=== PATIENT | male | born 1960 | race Caucasian/White ===

== ENCOUNTER → 2018-05-30 07:48 | Outpatient (CLI) | payer MEDICARE, SELFPAY ==
[2018-05-30 08:35] LABS: Add Manual Diff / Slide Review NO; Basophils Percent Auto 0.7 % (0-2); Eosinophils Percent Auto 4.4 % (2-4); Hematocrit 44.6 % (41-53); Hemoglobin 16.1 g/dL (13.5-17.5); Mean Corpuscular Hemoglobin 32.5 PG (26-34); Mean Corpuscular Volume 90.1 fL (80-100); Monocytes Percent Auto 10.2 % (3-14); Neutrophils Absolute Auto 3500 /uL (3000-5900); Neutrophils Percent Auto 54.7 % (50-75); Platelet Count 237 X10^3/uL (150-400); Red Blood Cell Count 4.95 X10^6/uL (4.5-5.9); Red Cell Distribution Width 13.1 % (11.6-14.8); White Blood Cell Count 6.4 X10^3/uL (4.5-11.0)
[2018-05-30 09:06] LABS: Alanine Aminotransferase 47 IU/L (21-72); Albumin 4.5 g/dL (3.5-5.0); Albumin Globulin Ratio 1.8 (1.0-2.8); Alkaline Phosphatase 59 U/L (38-126); Aspartate Aminotransferase 45 IU/L (17-59); BUN Creatinine Ratio 16.4 (6-22); Bilirubin Total 0.5 mg/dL (0.2-1.3); Blood Urea Nitrogen 18 mg/dL (9-20); Calcium 9.7 mg/dL (8.4-10.2); Carbon Dioxide 30 mmol/L (22-32); Chloride 99 mmol/L (98-107); Cholesterol 180 mg/dL (140-199); Estimated Glomerular Filt Rate > 60.0 mL/min (>60); Globulin 2.5 g/dL (1.7-4.1); Glucose 106 mg/dL (70-100); HDL Cholesterol 23 mg/dL (40-60); HEMOLYSIS 18 (0-50); Potassium 4.2 mmol/L (3.4-5.1); Sodium 139 mmol/L (137-145)
[2018-05-30 09:09] LABS: Hemoglobin A1C% w Est Avg Glu 5.3 % (4.0-6.0)
[2018-05-30 09:20] LABS: Triglycerides 704 mg/dL (35-150)
== END ==
PROVIDERS: PCP Internal Medicine; Visit Provider Physician Assistant
DX: I10 Essential (primary) hypertension (principal); E78.2 Mixed hyperlipidemia; E29.1 Testicular hypofunction; N52.1 Erectile dysfunction due to diseases classified elsewhere
CPT/HCPCS: 36415; 80053; 80061; 83036; 84403; 85025

== ENCOUNTER 2018-06-06 15:15 | Outpatient (RCR) | payer MEDICARE, SELFPAY ==
--- NOTE | 2018-02-12 16:43 | PT.OTN ---
Current Diagnoses Spinal stenosis, lumbar region without neurogenic claudication (02/12/18) Lumbago with sciatica, right side (02/12/18) Other abnormalities of gait and mobility (02/12/18) Transition note: On February 06, 2018 our therapy services consisting of Speech, Occupational, and Physical Therapy transitioned from the [employer] electronic documentation system to a new [employer] electronic documentation system.?? All documentation prior to February 06 can be found under [employer] saved data. From February 06 forward all medical record documentation will be in [employer] 6.1.
--- NOTE | 2018-02-12 16:57 | PT.OTN ---
Current Diagnoses Spinal stenosis, lumbar region without neurogenic claudication (02/12/18) Lumbago with sciatica, right side (02/12/18) Other abnormalities of gait and mobility (02/12/18) Physical Therapy Treatment Note PT-OP-A Visit Information Start: 02/12/18 16:29 Freq: Status: Active Protocol: Activity Type Activity Date Activity User E-Sign Co-Sign Detail Recorded Client Recorded Date Recorded By Document 02/12/18 16:31 [facility] [email or web address] 02/12/18 16:53 [facility] 02/12/18 16:31 Out-Patient Physical Therapy Visit Information [Visit Information] -Visit Type Treatment Note -Visit Start Time 11:45 -Visit Stop Time 12:30 -Total Visit Minutes 45 -Visit Number 4/10 -Number of RAILS DEVELOPER Visits 1 PT-OP-C Subjective Start: 02/12/18 16:29 Freq: Status: Active Protocol: Activity Type Activity Date Activity User E-Sign Co-Sign Detail Recorded Client Recorded Date Recorded By Document 02/12/18 16:31 [facility] [email or web address] 02/12/18 16:53 [facility] 02/12/18 16:31 OP-PT Subjective [Patient Comments] -Patient Comments Pt. states he's had a bad couple days, rates pain at 6 /10. PT-OP-S Aquatic Treatment Start: 02/12/18 16:29 Freq: Status: Active Protocol: Activity Type Activity Date Activity User E-Sign Co-Sign Detail Recorded Client Recorded Date Recorded By Document 02/12/18 16:31 [facility] [email or web address] 02/12/18 16:53 [facility] 02/12/18 16:31 Aquatics Treatment [Water Walking] Sideways -Comments Initiated side stepping, stopped secondary pain going to right. Backwards -Water Level Chest Level -Level of Assistance Independent Forwards -Water Level Chest Level -Level of Assistance Independent [Lower Extremity Exercises] 2 -Details Hip Abduction -Body Position Standing 1 -Details Hip flexion/ extension -Body Position Standing -Water Level Chest Level [Lower Extremity Stretches] 2 -Details Single knee to chest -Water Level Waist Level 1 -Details Hamstring -Body Position Standing -Water Level Waist Level -Equipment Small Noodle [Upper Extremity Exercises] 1 -Details Shoulder Flexion/ extension, AB/ AD, horizontal AB/AD -Body Position Standing -Reps/Duration 5 reps -Comments Bilateral and unilateral/ core stabilization emphasis [Manual Techniques] -Aquatic Manual Traction Neck float/ calf floats PT-OP-T Assessment and Plan Start: 02/12/18 16:29 Freq: Status: Active Protocol: Activity Type Activity Date Activity User E-Sign Co-Sign Detail Recorded Client Recorded Date Recorded By Document 02/12/18 16:31 [facility] [email or web address] 02/12/18 16:53 [facility] 02/12/18 16:31 Physical Therapy Assessment [Assessment Summary] -Assessment Pt. didn't tolerate side stepping to right so omitted it, gets relief with Manual Therapy. Cues to keep ROM within tolerance with exercises. Physical Therapy Plan [Frequency and Duration] -Frequency of Treatment 2x/Week -Duration of Treatment 3 months from -Plan of Care Start Date 01/24/18 -Plan of Care End Date 04/24/18 [Next Visit Focus/Plan] -Next Visit Plan Continue to decrease pain, increase function and ROM, strength.
--- NOTE | 2018-02-16 16:18 | PT.OTN ---
Current Diagnoses Spinal stenosis, lumbar region without neurogenic claudication (02/16/18) Lumbago with sciatica, right side (02/16/18) Other abnormalities of gait and mobility (02/16/18) Physical Therapy Treatment Note PT-OP-A Visit Information Start: 02/12/18 16:29 Freq: Status: Active Protocol: Document 02/16/18 15:05 SAK (Rec: 02/16/18 15:10 SAK [id number]) Out-Patient Physical Therapy Visit Information Visit Information Visit Type Treatment Note Visit Start Time 09:00 Visit Stop Time 09:55 Total Visit Minutes 6 Visit Number 0 Number of MANAGER WASTEWATER Visits 0 PT-OP-C Subjective Start: 02/12/18 16:29 Freq: Status: Active Protocol: Document 02/16/18 15:05 SAK (Rec: 02/16/18 15:10 SAK [id number]) OP-PT Subjective Patient Comments Patient Comments Overall feels he is improving but still has times when pain is 6/10 PT-OP-Q Treatments Start: 02/16/18 15:10 Freq: Status: Active Protocol: Document 02/16/18 15:10 SAK (Rec: 02/16/18 16:13 SAK [id number]) Therapeutic Exercises Supine Exercises 4 Supine Exercise Name iliopsoas stretch Side bilateral 3 Supine Exercise Name hamstring stretch Reps/Minutes 2 2 Supine Exercise Name piriformis stretch Side bilateral Reps/Minutes 2 1 Supine Exercise Name SKTC Side bilateral Reps/Minutes 2 PT-OP-R Modalities Start: 02/16/18 16:14 Freq: Status: Active Protocol: Document 02/16/18 16:14 SAK (Rec: 02/16/18 16:18 SAK [id number]) Hot Pack/Cold Pack Treatment Cold Pack Location l/s Patient Position Hooklying Treatment Duration (minutes) 10 Patient Tolerance Good Comments after mechanical traction Spinal Traction Traction Treatment Lumbar Method Mechanical Patient Position Hooklying Duration of Treatment (Minutes) 15 Heating Pad Applied Yes Traction Treatment Comment 30:10 intermittent 84lbs/65 lbs PT-OP-S Aquatic Treatment Start: 02/12/18 16:29 Freq: Status: Active Protocol: Document 02/12/18 16:31 TMS (Rec: 02/12/18 16:53 TMS [email or web address]) Aquatics Treatment Water Walking Sideways Comments Initiated side stepping, stopped secondary pain going to right. Backwards Water Level Chest Level Level of Assistance Independent Forwards Water Level Chest Level Level of Assistance Independent Lower Extremity Exercises 2 Details Hip Abduction Body Position Standing 1 Details Hip flexion/extension Body Position Standing Water Level Chest Level Lower Extremity Stretches 2 Details Single knee to chest Water Level Waist Level 1 Details Hamstring Body Position Standing Water Level Waist Level Equipment Small Noodle Upper Extremity Exercises 1 Details Shoulder Flexion/extension, AB /AD, horizontal AB/AD Body Position Standing Reps/Duration 5 reps Comments Bilateral and unilateral/ core stabilization emphasis Manual Techniques Aquatic Manual Traction Neck float/ calf floats PT-OP-T Assessment and Plan Start: 02/12/18 16:29 Freq: Status: Active Protocol: Document 02/12/18 16:31 TMS (Rec: 02/12/18 16:53 TMS [email or web address]) Physical Therapy Assessment Assessment Summary Assessment Pt. didn't tolerate side stepping ro right so omitted it, gets relief with Manual Therapy. Cues to keep ROM within tolerance with exercises. Physical Therapy Plan Frequency and Duration Frequency of Treatment 2x/Week Duration of Treatment 3 months from 01/24/2018 Plan of Care Start Date 01/24/18 Plan of Care End Date 04/24/18 Next Visit Focus/Plan Next Visit Plan Continue to decrease pain, increase function and ROM, strength.
--- NOTE | 2018-02-22 16:10 | PT.OTN ---
Current Diagnoses Spinal stenosis, lumbar region without neurogenic claudication (02/16/18) Lumbago with sciatica, right side (02/16/18) Other abnormalities of gait and mobility (02/16/18) Physical Therapy Treatment Note PT-OP-A Visit Information Start: 02/12/18 16:29 Freq: Status: Active Protocol: Document 02/22/18 13:15 SAK (Rec: 02/22/18 16:10 SAK [id number]) Out-Patient Physical Therapy Visit Information Visit Information Visit Type Treatment Note Visit Start Time 13:15 Visit Stop Time 14:15 Total Visit Minutes 60 Visit Number 610 Number of CAR WASH SUPERVISOR Visits 0 PT-OP-C Subjective Start: 02/12/18 16:29 Freq: Status: Active Protocol: Document 02/16/18 15:05 SAK (Rec: 02/16/18 15:[address] [facility] [id number]) OP-PT Subjective Patient Comments Patient Comments Overall feels he is improving but still has times when pain is 6/10 PT-OP-Q Treatments Start: 02/16/18 15:10 Freq: Status: Active Protocol: Document 02/22/18 13:15 SAK (Rec: 02/22/18 16:[address] [facility] [id number]) Therapeutic Exercises Supine Exercises 5 Supine Exercise Name pillow squeeze Side bilateral Reps/Minutes 10x 4 Supine Exercise Name iliopsoas stretch Side bilateral Comments manual 3 Supine Exercise Name hamstring stretch Reps/Minutes 2 Comments manual 2 Supine Exercise Name piriformis stretch Side bilateral Reps/Minutes 2 1 Supine Exercise Name SKTC Side bilateral Reps/Minutes 2 Other Exercises 1 Other Exercise Name HC stretch Equipment Used ARASELI Reps/Minutes 2 PT-OP-R Modalities Start: 02/16/18 16:14 Freq: Status: Active Protocol: Document 02/22/18 13:15 SAK (Rec: 02/22/18 16:[address] [facility] [id number]) Hot Pack/Cold Pack Treatment Cold Pack Location l/s Patient Position Hooklying Treatment Duration (minutes) 10 Patient Tolerance Good Comments after mechanical traction Spinal Traction Traction Treatment Lumbar Method Mechanical Patient Position Hooklying Duration of Treatment (Minutes) 15 Heating Pad Applied Yes Traction Treatment Comment 30:10 intermittent 85lbs/65 lbs 5 min set-up Ultrasound Therapy Treatment Right Lower Back Treatment Duration (minutes) 8 Patient Position Prone Frequency Setting (mHz) 2 Intensity Setting (w/cm2) 1.5 Patient Tolerance Good PT-OP-S Aquatic Treatment Start: 02/12/18 16:29 Freq: Status: Active Protocol: Document 02/12/18 16:31 TMS (Rec: 02/12/18 16:53 TMS [email or web address]) Aquatics Treatment Water Walking Sideways Comments Initiated side stepping, stopped secondary pain going to right. Backwards Water Level Chest Level Level of Assistance Independent Forwards Water Level Chest Level Level of Assistance Independent Lower Extremity Exercises 2 Details Hip Abduction Body Position Standing 1 Details Hip flexion/extension Body Position Standing Water Level Chest Level Lower Extremity Stretches 2 Details Single knee to chest Water Level Waist Level 1 Details Hamstring Body Position Standing Water Level Waist Level Equipment Small Noodle Upper Extremity Exercises 1 Details Shoulder Flexion/extension, AB /AD, horizontal AB/AD Body Position Standing Reps/Duration 5 reps Comments Bilateral and unilateral/ core stabilization emphasis Manual Techniques Aquatic Manual Traction Neck float/ calf floats PT-OP-T Assessment and Plan Start: 02/12/18 16:29 Freq: Status: Active Protocol: Document 02/22/18 13:15 SAK (Rec: 02/22/18 16:10 SAK [id number]) Physical Therapy Assessment Other Concerns Barriers to Rehabilitation low frequency of treatment; recommend increase to 2x/wk Assessment Summary Assessment decreased pain with treatment, recommend increase frequency (patient has just been on waiting list) to 2x/wk consistently for best results Physical Therapy Plan Frequency and Duration Frequency of Treatment 2x/Week Duration of Treatment 3 months from 01/24/2018 Plan of Care Start Date 01/24/18 Plan of Care End Date 04/24/18 Next Visit Focus/Plan Next Visit Plan Progress ther ex , continue with modalities. Manual treatment as indicated.
--- NOTE | 2018-02-27 16:21 | PT.OTN ---
Current Diagnoses Spinal stenosis, lumbar region without neurogenic claudication (02/27/18) Lumbago with sciatica, right side (02/27/18) Other abnormalities of gait and mobility (02/27/18) Physical Therapy Treatment Note PT-OP-A Visit Information Start: 02/12/18 16:29 Freq: Status: Active Protocol: Document 02/27/18 14:40 SAK (Rec: 02/27/18 14:57 SAK [id number]) Out-Patient Physical Therapy Visit Information Visit Information Visit Type Treatment Note Visit Start Time 13:15 Visit Stop Time 14:15 Total Visit Minutes 60 Visit Number 7/ Number of LOSS PREVENTION OFFICER Visits 0 PT-OP-C Subjective Start: 02/12/18 16:29 Freq: Status: Active Protocol: Document 02/27/18 14:40 SAK (Rec: 02/27/18 14:57 [facility] [id number]) OP-PT Subjective Patient Comments Patient Comments Better for longer every time. C/o gait difficulty wants PT to look at. PT-OP-Q Treatments Start: 02/16/18 15:10 Freq: Status: Active Protocol: Document 02/27/18 14:40 SAK (Rec: 02/27/18 16:20 [facility] [id number]) Cardio Equipment Recumbent Stepper (Sci-Fit) Duration (Minutes) 10 Resistance 2 Seat Position 13 Therapeutic Exercises Supine Exercises 4 Supine Exercise Name iliopsoas stretch Side bilateral Comments manual 3 Supine Exercise Name hamstring stretch Reps/Minutes 2 Comments manual 2 Supine Exercise Name piriformis stretch Side bilateral Reps/Minutes 2 1 Supine Exercise Name SKTC Side bilateral Reps/Minutes 2 Gait Training Gait Activity 1 Description Gait with verbal and visual feedback Surface level Comments decreased trunk rotation, drops right hip with gait. Improved after stretching but persists, able to correct some with decreased speed. PT-OP-R Modalities Start: 02/16/18 16:14 Freq: Status: Active Protocol: Document 02/27/18 14:40 SAK (Rec: 02/27/18 16:20 [facility] [id number]) Hot Pack/Cold Pack Treatment Cold Pack Location l/s Patient Position Hooklying Treatment Duration (minutes) 10 Patient Tolerance Good Comments after mechanical traction Spinal Traction Traction Treatment Lumbar Method Mechanical Patient Position Hooklying Duration of Treatment (Minutes) 15 Heating Pad Applied Yes Traction Treatment Comment 30:10 intermittent 85lbs/65 lbs 5 min set-up Ultrasound Therapy Treatment Right Lower Back Treatment Duration (minutes) 8 Patient Position Prone Frequency Setting (mHz) 2 Intensity Setting (w/cm2) 1.5 Patient Tolerance Good PT-OP-S Aquatic Treatment Start: 02/12/18 16:29 Freq: Status: Active Protocol: Document 02/12/18 16:31 TMS (Rec: 02/12/18 16:53 TMS [email or web address]) Aquatics Treatment Water Walking Sideways Comments Initiated side stepping, stopped secondary pain going to right. Backwards Water Level Chest Level Level of Assistance Independent Forwards Water Level Chest Level Level of Assistance Independent Lower Extremity Exercises 2 Details Hip Abduction Body Position Standing 1 Details Hip flexion/extension Body Position Standing Water Level Chest Level Lower Extremity Stretches 2 Details Single knee to chest Water Level Waist Level 1 Details Hamstring Body Position Standing Water Level Waist Level Equipment Small Noodle Upper Extremity Exercises 1 Details Shoulder Flexion/extension, AB /AD, horizontal AB/AD Body Position Standing Reps/Duration 5 reps Comments Bilateral and unilateral/ core stabilization emphasis Manual Techniques Aquatic Manual Traction Neck float/ calf floats PT-OP-T Assessment and Plan Start: 02/12/18 16:29 Freq: Status: Active Protocol: Document 02/27/18 14:40 SAK (Rec: 02/27/18 16:20 SAK [id number]) Physical Therapy Assessment Assessment Summary Assessment Good response to treatment especially mechanical traction . Stretching at home somewhat difficult due to tremors in UE's as well as short UE's. Physical Therapy Plan Frequency and Duration Frequency of Treatment 2x/Week Duration of Treatment 3 months from 01/24/2018 Plan of Care Start Date 01/24/18 Plan of Care End Date 04/24/18 Next Visit Focus/Plan Next Visit Plan continue PT per plan to decrease pain, progress with core stabilization, functional retraining including core activation with squatting and lifting. Please Sign and Return: I have reviewed this Plan of Care and certify that the skilled therapy services above are required to meet the patient???s needs. Physician Signature Date Printed Name and Credentials Clinical Instructor Signature Printed Name and Credentials
--- NOTE | 2018-03-01 16:45 | PT.OTN ---
Current Diagnoses Spinal stenosis, lumbar region without neurogenic claudication (03/01/18) Lumbago with sciatica, right side (03/01/18) Other abnormalities of gait and mobility (03/01/18) Physical Therapy Treatment Note PT-OP-A Visit Information Start: 02/12/18 16:29 Freq: Status: Active Protocol: Document 03/01/18 14:35 SAK (Rec: 03/01/18 16:45 SAK [id number]) Out-Patient Physical Therapy Visit Information Visit Information Visit Type Treatment Note Visit Start Time 14:30 Visit Stop Time 15:32 Total Visit Minutes 62 Visit Number 8/ Number of BIOMASS FACILITATOR Visits 0 Evaluation Information Evaluation Date 01/24/18 PT-OP-C Subjective Start: 02/12/18 16:29 Freq: Status: Active Protocol: Document 03/01/18 14:35 SAK (Rec: 03/01/18 15:05 SAK [id number]) OP-PT Subjective Patient Comments Patient Comments C/o neck pain, requests no traction today. PT-OP-Q Treatments Start: 02/16/18 15:10 Freq: Status: Active Protocol: Document 03/01/18 14:35 SAK (Rec: 03/01/18 15:05 SAK [id number]) Cardio Equipment Recumbent Stepper (Sci-Fit) Duration (Minutes) 11 Resistance 2.5 Seat Position 13 Gym Equipment Shuttle Recovery Bilateral Squats Resistance 75 Shuttle Recovery Platform Stable Reps/Time 2 x 10 Shuttle Balance 1 Details standing bal chains red Reps/Duration 4 min Comments fwd/bck, side Therapeutic Exercises Supine Exercises 4 Supine Exercise Name iliopsoas stretch Side bilateral Comments manual 3 Supine Exercise Name hamstring stretch Reps/Minutes 5 Comments wall 2 Supine Exercise Name piriformis stretch Side bilateral Reps/Minutes 2 1 Supine Exercise Name SKTC Side bilateral Reps/Minutes 2 PT-OP-R Modalities Start: 02/16/18 16:14 Freq: Status: Active Protocol: Document 03/01/18 14:35 SAK (Rec: 03/01/18 16:45 SAK [id number]) Hot Pack/Cold Pack Treatment Hot Pack Location l/s Patient Position Prone Treatment Duration (minutes) 15 Patient Tolerance Good Comments Patient reports he will ice at home today. Spinal Traction Traction Treatment Lumbar Traction Treatment Comment refused today due to neck pain Ultrasound Therapy Treatment Right Lower Back Treatment Duration (minutes) 8 Patient Position Prone Frequency Setting (mHz) 2 Intensity Setting (w/cm2) 1.5 Patient Tolerance Good PT-OP-S Aquatic Treatment Start: 02/12/18 16:29 Freq: Status: Active Protocol: Document 02/12/18 16:31 TMS (Rec: 02/12/18 16:53 TMS [email or web address]) Aquatics Treatment Water Walking Sideways Comments Initiated side stepping, stopped secondary pain going to right. Backwards Water Level Chest Level Level of Assistance Independent Forwards Water Level Chest Level Level of Assistance Independent Lower Extremity Exercises 2 Details Hip Abduction Body Position Standing 1 Details Hip flexion/extension Body Position Standing Water Level Chest Level Lower Extremity Stretches 2 Details Single knee to chest Water Level Waist Level 1 Details Hamstring Body Position Standing Water Level Waist Level Equipment Small Noodle Upper Extremity Exercises 1 Details Shoulder Flexion/extension, AB /AD, horizontal AB/AD Body Position Standing Reps/Duration 5 reps Comments Bilateral and unilateral/ core stabilization emphasis Manual Techniques Aquatic Manual Traction Neck float/ calf floats PT-OP-T Assessment and Plan Start: 02/12/18 16:29 Freq: Status: Active Protocol: Document 03/01/18 14:35 SAK (Rec: 03/01/18 16:45 SAK [id number]) Physical Therapy Assessment Assessment Summary Assessment Tolerated added exercises well today with cues for postural alignment and core stabilization. No traction per patient request. No exacerbation of neck pain with treatment. Physical Therapy Plan Frequency and Duration Frequency of Treatment 2x/Week Duration of Treatment 3 months from 01/24/2018 Plan of Care Start Date 01/24/18 Plan of Care End Date 04/24/18 Next Visit Focus/Plan Next Visit Plan resume mechanical traction next session. Progress therapeutic exercises. Please Sign and Return: I have reviewed this Plan of Care and certify that the skilled therapy services above are required to meet the patient???s needs. Physician Signature Date Printed Name and Credentials Clinical Instructor Signature Printed Name and Credentials
--- NOTE | 2018-03-08 17:00 | PT.OTN ---
Current Diagnoses Spinal stenosis, lumbar region without neurogenic claudication (03/08/18) Lumbago with sciatica, right side (03/08/18) Other abnormalities of gait and mobility (03/08/18) Physical Therapy Treatment Note PT-OP-A Visit Information Start: 02/12/18 16:29 Freq: Status: Active Protocol: Document 03/08/18 14:30 SAK (Rec: 03/08/18 17:00 SAK [id number]) Out-Patient Physical Therapy Visit Information Visit Information Visit Type Treatment Note Visit Start Time 14:30 Visit Stop Time 15:38 Total Visit Minutes 68 Visit Number 07/18 Number of FILLER BLOCK INSERTER REMOVER Visits 0 Evaluation Information Evaluation Date 01/24/18 PT-OP-C Subjective Start: 02/12/18 16:29 Freq: Status: Active Protocol: Document 03/08/18 14:30 SAK (Rec: 03/08/18 17:00 SAK [id number]) OP-PT Subjective Patient Comments Patient Comments Neck pain mostly gone, states it was due to couching. Pain 4/10 for past couple days, has resumed doing some walking, reports guarded but improved. PT-OP-Q Treatments Start: 02/16/18 15:10 Freq: Status: Active Protocol: Document 03/08/18 14:30 SAK (Rec: 03/08/18 17:00 SAK [id number]) Cardio Equipment Recumbent Stepper (Sci-Fit) Duration (Minutes) 10 Resistance 2.5 Seat Position 13 Gym Equipment Shuttle Recovery Bilateral Squats Resistance 87 Shuttle Recovery Platform Stable Reps/Time 3 x 10 Shuttle Balance 1 Details standing bal chains red Reps/Duration 4 min Comments fwd/bck, side Therapeutic Exercises Supine Exercises 4 Supine Exercise Name iliopsoas stretch Side bilateral Comments manual 3 Supine Exercise Name hamstring stretch Reps/Minutes 5 Comments standing 1 Supine Exercise Name SKTC Side bilateral Reps/Minutes 2 Other Exercises 1 Other Exercise Name HC stretch Equipment Used ARASELI Reps/Minutes 2 PT-OP-R Modalities Start: 02/16/18 16:14 Freq: Status: Active Protocol: Document 03/08/18 14:30 SAK (Rec: 03/08/18 17:00 SAK [id number]) Hot Pack/Cold Pack Treatment Cold Pack Location l/s Patient Position Hooklying Treatment Duration (minutes) 10 Patient Tolerance Good Comments after mechanical traction Spinal Traction Traction Treatment Lumbar Method Mechanical Patient Position Hooklying Intermittent Time On (Seconds) 30 Intermittent Time Off (Seconds) 10 Duration of Treatment (Minutes) 15 Heating Pad Applied Yes Traction Treatment Comment 30:10 intermittent 85lbs/65 lbs 5 min set-up Ultrasound Therapy Treatment Right Lower Back Treatment Duration (minutes) 8 Patient Position Prone Frequency Setting (mHz) 2 Intensity Setting (w/cm2) 1.5 PT-OP-S Aquatic Treatment Start: 02/12/18 16:29 Freq: Status: Active Protocol: Document 02/12/18 16:31 TMS (Rec: 02/12/18 16:53 TMS [email or web address]) Aquatics Treatment Water Walking Sideways Comments Initiated side stepping, stopped secondary pain going to right. Backwards Water Level Chest Level Level of Assistance Independent Forwards Water Level Chest Level Level of Assistance Independent Lower Extremity Exercises 2 Details Hip Abduction Body Position Standing 1 Details Hip flexion/extension Body Position Standing Water Level Chest Level Lower Extremity Stretches 2 Details Single knee to chest Water Level Waist Level 1 Details Hamstring Body Position Standing Water Level Waist Level Equipment Small Noodle Upper Extremity Exercises 1 Details Shoulder Flexion/extension, AB /AD, horizontal AB/AD Body Position Standing Reps/Duration 5 reps Comments Bilateral and unilateral/ core stabilization emphasis Manual Techniques Aquatic Manual Traction Neck float/ calf floats PT-OP-T Assessment and Plan Start: 02/12/18 16:29 Freq: Status: Active Protocol: Document 03/08/18 14:30 SAK (Rec: 03/08/18 17:00 SAK [id number]) Physical Therapy Assessment Goals Six Impairment lacks home program Alf Goal (LTG) Independent with HEP, aquatic exercise program LTG Duration 04/24/18 Five Impairment antalgic gait Hammer Driver Goal (LTG) Patient able to ambulate without limp LTG Duration 04/24/18 Four Impairment Painful transitional movements Hammer Driver Goal (LTG) Able to transition sit to stand without an increase in pain LTG Duration 04/24/18 Three Impairment Guarded movement Alf Goal (LTG) Patient able to return to pre- injury movement without guarding LTG Duration 04/24/18 Two Impairment decreased activity tolerance Hammer Driver Goal (LTG) Improve [place]estery disability index score to no greater than 15% LTG Duration 04/24/18 One Impairment pain Hammer Driver Goal (LTG) Patient able to return to all prior activities and improve his sleep to pre-injury levels . LTG Duration 04/24/18 Progress Towards Goals Progress Towards Goals Progressing Toward Goals Assessment Summary Assessment Good progress with decrease in pain and increase in activity level; good progress in all goal areas. Would benefit from further PT to help him return to prior functional level Physical Therapy Plan Frequency and Duration Frequency of Treatment 2x/Week Duration of Treatment 3 months from 01/24/2018 Plan of Care Start Date 01/24/18 Plan of Care End Date 04/24/18 Next Visit Focus/Plan Next Visit Plan Continue PT per POC; combination aquatic therapy and land-based PT. Please Sign and Return: I have reviewed this Plan of Care and certify that the skilled therapy services above are required to meet the patient?s needs. Physician Signature Date Printed Name and Credentials Clinical Instructor Signature Printed Name and Credentials
--- NOTE | 2018-03-09 15:14 | PT.OTN ---
Current Diagnoses Spinal stenosis, lumbar region without neurogenic claudication (03/08/18) Lumbago with sciatica, right side (03/08/18) Other abnormalities of gait and mobility (03/08/18) Physical Therapy Treatment Note PT-OP-A Visit Information Start: 02/12/18 16:29 Freq: Status: Active Protocol: Document 03/09/18 14:57 TMS (Rec: 03/09/18 15:11 TMS [email or web address]) Out-Patient Physical Therapy Visit Information Visit Information Visit Type Treatment Note Visit Start Time 11:00 Visit Stop Time 11:45 Total Visit Minutes 45 Visit Number 08/19 Number of ROUND UP RING HAND Visits 1 PT-OP-C Subjective Start: 02/12/18 16:29 Freq: Status: Active Protocol: Document 03/09/18 14:57 TMS (Rec: 03/09/18 15:11 TMS [email or web address]) OP-PT Subjective Patient Comments Patient Comments Pt. states pain has decreased overall, now at 1-4/10. Patient Reported Progress Improving PT-OP-Q Treatments Start: 02/16/18 15:10 Freq: Status: Active Protocol: Document 03/08/18 14:30 SAK (Rec: 03/08/18 17:00 SAK [id number]) Cardio Equipment Recumbent Stepper (Sci-Fit) Duration (Minutes) 10 Resistance 2.5 Seat Position 13 Gym Equipment Shuttle Recovery Bilateral Squats Resistance 87 Shuttle Recovery Platform Stable Reps/Time 3 x 10 Shuttle Balance 1 Details standing bal chains red Reps/Duration 4 min Comments fwd/bck, side Therapeutic Exercises Supine Exercises 4 Supine Exercise Name iliopsoas stretch Side bilateral Comments manual 3 Supine Exercise Name hamstring stretch Reps/Minutes 5 Comments standing 1 Supine Exercise Name SKTC Side bilateral Reps/Minutes 2 Other Exercises 1 Other Exercise Name HC stretch Equipment Used ARASELI Reps/Minutes 2 PT-OP-R Modalities Start: 02/16/18 16:14 Freq: Status: Active Protocol: Document 03/08/18 14:30 SAK (Rec: 03/08/18 17:00 SAK [id number]) Hot Pack/Cold Pack Treatment Cold Pack Location l/s Patient Position Hooklying Treatment Duration (minutes) 10 Patient Tolerance Good Comments after mechanical traction Spinal Traction Traction Treatment Lumbar Method Mechanical Patient Position Hooklying Intermittent Time On (Seconds) 30 Intermittent Time Off (Seconds) 10 Duration of Treatment (Minutes) 15 Heating Pad Applied Yes Traction Treatment Comment 30:10 intermittent 85lbs/65 lbs 5 min set-up Ultrasound Therapy Treatment Right Lower Back Treatment Duration (minutes) 8 Patient Position Prone Frequency Setting (mHz) 2 Intensity Setting (w/cm2) 1.5 PT-OP-S Aquatic Treatment Start: 02/12/18 16:29 Freq: Status: Active Protocol: Document 03/09/18 14:57 TMS (Rec: 03/09/18 15:11 TMS [email or web address]) Aquatics Treatment Pool Entry/Exit Pool Entry/Exit Method Stairs Assistance Independent Water Walking Forwards Water Level Chest Level Lower Extremity Exercises 2 Details Hip Flexion/Ext Body Position Standing Water Level Chest Level 1 Details Hip Abduction/ADD Body Position Standing Water Level Chest Level Lower Extremity Stretches 2 Details Hamstring stretching Body Position Standing Water Level Chest Level Equipment Small Noodle [place] Activities [place] Activities Bicycle Bicycle Backwards [place] Hip Abduction/Adduction Equipment Belt Comments 30 seconds fast/30 seconds slow, 4 sets. PT-OP-T Assessment and Plan Start: 02/12/18 16:29 Freq: Status: Active Protocol: Document 03/09/18 14:57 TMS (Rec: 03/09/18 15:11 TMS [email or web address]) Physical Therapy Assessment Assessment Summary Assessment Decreased pain overall, pt. is planning on trying not to over do with land activities. Physical Therapy Plan Frequency and Duration Frequency of Treatment 2x/Week Duration of Treatment 3 months from 01/24/2018 Plan of Care Start Date 01/24/18 Plan of Care End Date 04/24/18 Next Visit Focus/Plan Next Visit Plan Continue with goals of decreasing pain, increasing function and endurance. Please Sign and Return: I have reviewed this Plan of Care and certify that the skilled therapy services above are required to meet the patient?s needs. Physician Signature Date Printed Name and Credentials Clinical Instructor Signature Printed Name and Credentials
--- NOTE | 2018-03-09 15:15 | PT.OTN ---
Current Diagnoses Spinal stenosis, lumbar region without neurogenic claudication (03/08/18) Lumbago with sciatica, right side (03/08/18) Other abnormalities of gait and mobility (03/08/18) Physical Therapy Treatment Note PT-OP-A Visit Information Start: 02/12/18 16:29 Freq: Status: Active Protocol: Document 03/09/18 14:57 TMS (Rec: 03/09/18 15:11 TMS [email or web address]) Out-Patient Physical Therapy Visit Information Visit Information Visit Type Treatment Note Visit Start Time 11:00 Visit Stop Time 11:45 Total Visit Minutes 45 Visit Number 08/19 Number of SHEET METAL WELDER Visits 1 PT-OP-C Subjective Start: 02/12/18 16:29 Freq: Status: Active Protocol: Document 03/09/18 14:57 TMS (Rec: 03/09/18 15:11 TMS [email or web address]) OP-PT Subjective Patient Comments Patient Comments Pt. states pain has decreased overall, now at 1-4/10. Patient Reported Progress Improving PT-OP-Q Treatments Start: 02/16/18 15:10 Freq: Status: Active Protocol: Document 03/08/18 14:30 SAK (Rec: 03/08/18 17:00 SAK [id number]) Cardio Equipment Recumbent Stepper (Sci-Fit) Duration (Minutes) 10 Resistance 2.5 Seat Position 13 Gym Equipment Shuttle Recovery Bilateral Squats Resistance 87 Shuttle Recovery Platform Stable Reps/Time 3 x 10 Shuttle Balance 1 Details standing bal chains red Reps/Duration 4 min Comments fwd/bck, side Therapeutic Exercises Supine Exercises 4 Supine Exercise Name iliopsoas stretch Side bilateral Comments manual 3 Supine Exercise Name hamstring stretch Reps/Minutes 5 Comments standing 1 Supine Exercise Name SKTC Side bilateral Reps/Minutes 2 Other Exercises 1 Other Exercise Name HC stretch Equipment Used ARASELI Reps/Minutes 2 PT-OP-R Modalities Start: 02/16/18 16:14 Freq: Status: Active Protocol: Document 03/08/18 14:30 SAK (Rec: 03/08/18 17:00 SAK [id number]) Hot Pack/Cold Pack Treatment Cold Pack Location l/s Patient Position Hooklying Treatment Duration (minutes) 10 Patient Tolerance Good Comments after mechanical traction Spinal Traction Traction Treatment Lumbar Method Mechanical Patient Position Hooklying Intermittent Time On (Seconds) 30 Intermittent Time Off (Seconds) 10 Duration of Treatment (Minutes) 15 Heating Pad Applied Yes Traction Treatment Comment 30:10 intermittent 85lbs/65 lbs 5 min set-up Ultrasound Therapy Treatment Right Lower Back Treatment Duration (minutes) 8 Patient Position Prone Frequency Setting (mHz) 2 Intensity Setting (w/cm2) 1.5 PT-OP-S Aquatic Treatment Start: 02/12/18 16:29 Freq: Status: Active Protocol: Document 03/09/18 14:57 TMS (Rec: 03/09/18 15:11 TMS [email or web address]) Aquatics Treatment Pool Entry/Exit Pool Entry/Exit Method Stairs Assistance Independent Water Walking Forwards Water Level Chest Level Lower Extremity Exercises 2 Details Hip Flexion/Ext Body Position Standing Water Level Chest Level 1 Details Hip Abduction/ADD Body Position Standing Water Level Chest Level Lower Extremity Stretches 2 Details Hamstring stretching Body Position Standing Water Level Chest Level Equipment Small Noodle [place] Activities [place] Activities Bicycle Bicycle Backwards [place] Hip Abduction/Adduction Equipment Belt Comments 30 seconds fast/30 seconds slow, 4 sets. Manual Techniques Aquatic Manual Traction Neck float/calf floats 03/09/18 15:14 PT OP Treatment Note by Kenzie Ware Current Diagnoses Spinal stenosis, lumbar region without neurogenic claudication (03/08/18) Lumbago with sciatica, right side (03/08/18) Other abnormalities of gait and mobility (03/08/18) Physical Therapy Treatment Note PT-OP-A Visit Information Start: 02/12/18 16:29 Freq: Status: Active Protocol: Document 03/09/18 14:57 TMS (Rec: 03/09/18 15:11 TMS [email or web address]) Out-Patient Physical Therapy Visit Information Visit Information Visit Type Treatment Note Visit Start Time 11:00 Visit Stop Time 11:45 Total Visit Minutes 45 Visit Number 08/19 Number of SHEET METAL WELDER Visits 1 PT-OP-C Subjective Start: 02/12/18 16:29 Freq: Status: Active Protocol: Document 03/09/18 14:57 TMS (Rec: 03/09/18 15:11 TMS [email or web address]) OP-PT Subjective Patient Comments Patient Comments Pt. states pain has decreased overall, now at 1-4/10. Patient Reported Progress Improving PT-OP-Q Treatments Start: 02/16/18 15:10 Freq: Status: Active Protocol: Document 03/08/18 14:30 SAK (Rec: 03/08/18 17:00 SAK [id number]) Cardio Equipment Recumbent Stepper (Sci-Fit) Duration (Minutes) 10 Resistance 2.5 Seat Position 13 Gym Equipment Shuttle Recovery Bilateral Squats Resistance 87 Shuttle Recovery Platform Stable Reps/Time 3 x 10 Shuttle Balance 1 Details standing bal chains red Reps/Duration 4 min Comments fwd/bck, side Therapeutic Exercises Supine Exercises 4 Supine Exercise Name iliopsoas stretch Side bilateral Comments manual 3 Supine Exercise Name hamstring stretch Reps/Minutes 5 Comments standing 1 Supine Exercise Name SKTC Side bilateral Reps/Minutes 2 Other Exercises 1 Other Exercise Name HC stretch Equipment Used ARASELI Reps/Minutes 2 PT-OP-R Modalities Start: 02/16/18 16:14 Freq: Status: Active Protocol: Document 03/08/18 14:30 SAK (Rec: 03/08/18 17:00 [facility] [id number]) Hot Pack/Cold Pack Treatment Cold Pack Location l/s Patient Position Hooklying Treatment Duration (minutes) 10 Patient Tolerance Good Comments after mechanical traction Spinal Traction Traction Treatment Lumbar Method Mechanical Patient Position Hooklying Intermittent Time On (Seconds) 30 Intermittent Time Off (Seconds) 10 Duration of Treatment (Minutes) 15 Heating Pad Applied Yes Traction Treatment Comment 30:10 intermittent 85lbs/65 lbs 5 min set-up Ultrasound Therapy Treatment Right Lower Back Treatment Duration (minutes) 8 Patient Position Prone Frequency Setting (mHz) 2 Intensity Setting (w/cm2) 1.5 PT-OP-S Aquatic Treatment Start: 02/12/18 16:29 Freq: Status: Active Protocol: Document 03/09/18 14:57 TMS (Rec: 03/09/18 15:11 TMS [email or web address]) Aquatics Treatment Pool Entry/Exit Pool Entry/Exit Method Stairs Assistance Independent Water Walking Forwards Water Level Chest Level Lower Extremity Exercises 2 Details Hip Flexion/Ext Body Position Standing Water Level Chest Level 1 Details Hip Abduction/ADD Body Position Standing Water Level Chest Level Lower Extremity Stretches 2 Details Hamstring stretching Body Position Standing Water Level Chest Level Equipment Small Noodle [place] Activities [place] Activities Bicycle Bicycle Backwards [place] Hip Abduction/Adduction Equipment Belt Comments 30 seconds fast/30 seconds slow, 4 sets. PT-OP-T Assessment and Plan Start: 02/12/18 16:29 Freq: Status: Active Protocol: Document 03/09/18 14:57 TMS (Rec: 06/01/18 15:11 TMS [email or web address]) Physical Therapy Assessment Assessment Summary Assessment Decreased pain overall, pt. is planning on trying not to over do with land activities. Physical Therapy Plan Frequency and Duration Frequency of Treatment 2x/Week Duration of Treatment 3 months from 01/24/2018 Plan of Care Start Date 01/24/18 Plan of Care End Date 04/24/18 Next Visit Focus/Plan Next Visit Plan Continue with goals of decreasing pain, increasing function and endurance. Please Sign and Return: I have reviewed this Plan of Care and certify that the skilled therapy services above are required to meet the patient?s needs. Physician Signature Date Printed Name and Credentials Clinical Instructor Signature Printed Name and Credentials Initialized on 03/09/18 15:14 - END OF NOTE PT-OP-T Assessment and Plan Start: 02/12/18 16:29 Freq: Status: Active Protocol: Document 03/09/18 14:57 TMS (Rec: 03/09/18 15:11 TMS [email or web address]) Physical Therapy Assessment Assessment Summary Assessment Decreased pain overall, pt. is planning on trying not to over do with land activities. Physical Therapy Plan Frequency and Duration Frequency of Treatment 2x/Week Duration of Treatment 3 months from 01/24/2018 Plan of Care Start Date 01/24/18 Plan of Care End Date 04/24/18 Next Visit Focus/Plan Next Visit Plan Continue with goals of decreasing pain, increasing function and endurance. Please Sign and Return: I have reviewed this Plan of Care and certify that the skilled therapy services above are required to meet the patient?s needs. Physician Signature Date Printed Name and Credentials Clinical Instructor Signature Printed Name and Credentials
--- NOTE | 2018-03-12 15:29 | PT.OTN ---
Current Diagnoses Spinal stenosis, lumbar region without neurogenic claudication (03/09/18) Lumbago with sciatica, right side (03/09/18) Other abnormalities of gait and mobility (03/09/18) Physical Therapy Treatment Note PT-OP-A Visit Information Start: 02/12/18 16:29 Freq: Status: Active Protocol: Document 03/12/18 15:15 TMS (Rec: 03/12/18 15:28 TMS [email or web address]) Out-Patient Physical Therapy Visit Information Visit Information Visit Type Treatment Note Visit Start Time 11:45 Visit Stop Time 12:30 Total Visit Minutes 45 Visit Number 09/27 Number of MATHEMATICS LECTURER Visits 2 PT-OP-C Subjective Start: 02/12/18 16:29 Freq: Status: Active Protocol: Document 03/12/18 15:15 TMS (Rec: 03/12/18 15:28 TMS [email or web address]) OP-PT Subjective Patient Comments Patient Comments Pt. reports his pain ranges from 2-4, generally on the lower side. PT-OP-Q Treatments Start: 02/16/18 15:10 Freq: Status: Active Protocol: Document 03/08/18 14:30 SAK (Rec: 03/08/18 17:00 SAK [id number]) Cardio Equipment Recumbent Stepper (Sci-Fit) Duration (Minutes) 10 Resistance 2.5 Seat Position 13 Gym Equipment Shuttle Recovery Bilateral Squats Resistance 87 Shuttle Recovery Platform Stable Reps/Time 3 x 10 Shuttle Balance 1 Details standing bal chains red Reps/Duration 4 min Comments fwd/bck, side Therapeutic Exercises Supine Exercises 4 Supine Exercise Name iliopsoas stretch Side bilateral Comments manual 3 Supine Exercise Name hamstring stretch Reps/Minutes 5 Comments standing 1 Supine Exercise Name SKTC Side bilateral Reps/Minutes 2 Other Exercises 1 Other Exercise Name HC stretch Equipment Used ARASELI Reps/Minutes 2 PT-OP-R Modalities Start: 02/16/18 16:14 Freq: Status: Active Protocol: Document 03/08/18 14:30 SAK (Rec: 03/08/18 17:00 SAK [id number]) Hot Pack/Cold Pack Treatment Cold Pack Location l/s Patient Position Hooklying Treatment Duration (minutes) 10 Patient Tolerance Good Comments after mechanical traction Spinal Traction Traction Treatment Lumbar Method Mechanical Patient Position Hooklying Intermittent Time On (Seconds) 30 Intermittent Time Off (Seconds) 10 Duration of Treatment (Minutes) 15 Heating Pad Applied Yes Traction Treatment Comment 30:10 intermittent 85lbs/65 lbs 5 min set-up Ultrasound Therapy Treatment Right Lower Back Treatment Duration (minutes) 8 Patient Position Prone Frequency Setting (mHz) 2 Intensity Setting (w/cm2) 1.5 PT-OP-S Aquatic Treatment Start: 02/12/18 16:29 Freq: Status: Active Protocol: Document 03/12/18 15:15 TMS (Rec: 03/12/18 15:28 TMS [email or web address]) Aquatics Treatment Pool Entry/Exit Pool Entry/Exit Method Stairs Assistance Independent Water Walking Sideways Water Level Chest Level Walking Equipment Resistance Fins Level of Assistance Standby Assistance Backwards Water Level Chest Level Walking Equipment Resistance Fins Level of Assistance Standby Assistance Forwards Water Level Chest Level Walking Equipment Resistance Fins Level of Assistance Standby Assistance Lower Extremity Exercises 4 Details Squats Body Position Standing Water Level Chest Level Equipment Resistance Fins 3 Details L.E. circles Body Position Standing Water Level Chest Level Equipment Resistance Fins 2 Details Hip Flexion/Ext Body Position Standing Water Level Chest Level Equipment Resistance Fins 1 Details Hip Abduction/ADD Body Position Standing Water Level Chest Level Equipment Resistance Fins Lower Extremity Stretches 2 Details Hamstring stretching Body Position Standing Water Level Chest Level Equipment Small Noodle Comments including IT band, hip ADD Spinal Exercises 2 Details Deep water stabilization Water Level [place] Equipment Large bar bells [place] Activities [place] Activities Bicycle Bicycle Backwards [place] Hip Abduction/Adduction Equipment Belt Comments 30 seconds fast/30 seconds slow, 4 sets. PT-OP-T Assessment and Plan Start: 02/12/18 16:29 Freq: Status: Active Protocol: Document 03/12/18 15:15 TMS (Rec: 03/12/18 15:28 [facility] [email or web address]) Physical Therapy Assessment Assessment Summary Assessment Good tolerance with exercises, less complaints of pain overall. Physical Therapy Plan Frequency and Duration Frequency of Treatment 2x/Week Duration of Treatment 3 months from 01/24/2018 Plan of Care Start Date 01/24/18 Plan of Care End Date 04/24/18 Next Visit Focus/Plan Next Visit Plan Continue with goals of decreasing pain, increasing function and endurance. Please Sign and Return: I have reviewed this Plan of Care and certify that the skilled therapy services above are required to meet the patient?s needs. Physician Signature Date Printed Name and Credentials Clinical Instructor Signature Printed Name and Credentials
--- NOTE | 2018-03-14 14:56 | PT.OTN ---
Current Diagnoses Spinal stenosis, lumbar region without neurogenic claudication (03/14/18) Lumbago with sciatica, right side (03/14/18) Other abnormalities of gait and mobility (03/14/18) Physical Therapy Treatment Note PT-OP-A Visit Information Start: 02/12/18 16:29 Freq: Status: Active Protocol: Document 03/14/18 14:40 TMS (Rec: 03/14/18 14:56 TMS [id number]) Out-Patient Physical Therapy Visit Information Visit Information Visit Type Treatment Note Visit Start Time 11:00 Visit Stop Time 11:45 Total Visit Minutes 45 Visit Number Number of AUTOMATIC PUNCH PRESS OPERATOR Visits 3 PT-OP-C Subjective Start: 02/12/18 16:29 Freq: Status: Active Protocol: Document 03/14/18 14:40 TMS (Rec: 03/14/18 14:56 TMS [id number]) OP-PT Subjective Patient Comments Patient Comments Pt. states he had increased discomfort in right hip after last visit. States he thinks it was from side stepping. PT-OP-Q Treatments Start: 02/16/18 15:10 Freq: Status: Active Protocol: Document 03/08/18 14:30 SAK (Rec: 03/08/18 17:00 SAK [id number]) Cardio Equipment Recumbent Stepper (Sci-Fit) Duration (Minutes) 10 Resistance 2.5 Seat Position 13 Gym Equipment Shuttle Recovery Bilateral Squats Resistance 87 Shuttle Recovery Platform Stable Reps/Time 3 x 10 Shuttle Balance 1 Details standing bal chains red Reps/Duration 4 min Comments fwd/bck, side Therapeutic Exercises Supine Exercises 4 Supine Exercise Name iliopsoas stretch Side bilateral Comments manual 3 Supine Exercise Name hamstring stretch Reps/Minutes 5 Comments standing 1 Supine Exercise Name SKTC Side bilateral Reps/Minutes 2 Other Exercises 1 Other Exercise Name HC stretch Equipment Used ARASELI Reps/Minutes 2 PT-OP-R Modalities Start: 02/16/18 16:14 Freq: Status: Active Protocol: Document 03/08/18 14:30 SAK (Rec: 03/08/18 17:00 SAK [id number]) Hot Pack/Cold Pack Treatment Cold Pack Location l/s Patient Position Hooklying Treatment Duration (minutes) 10 Patient Tolerance Good Comments after mechanical traction Spinal Traction Traction Treatment Lumbar Method Mechanical Patient Position Hooklying Intermittent Time On (Seconds) 30 Intermittent Time Off (Seconds) 10 Duration of Treatment (Minutes) 15 Heating Pad Applied Yes Traction Treatment Comment 30:10 intermittent 85lbs/65 lbs 5 min set-up Ultrasound Therapy Treatment Right Lower Back Treatment Duration (minutes) 8 Patient Position Prone Frequency Setting (mHz) 2 Intensity Setting (w/cm2) 1.5 PT-OP-S Aquatic Treatment Start: 02/12/18 16:29 Freq: Status: Active Protocol: Document 03/14/18 14:40 TMS (Rec: 03/14/18 14:56 [facility] [id number]) Aquatics Treatment Water Walking Forwards Water Level Chest Level Level of Assistance Standby Assistance Lower Extremity Exercises Heel/toe Details Heel toe Body Position Standing Water Level Chest Level 4 Details Squats Body Position Standing Water Level Chest Level Lower Extremity Stretches 2 Details Hamstring stretching Body Position Standing Water Level Chest Level Equipment Small Noodle 1 Details Single and double knee to chest Water Level [place] Upper Extremity Exercises 1 Details Arm pull downs Body Position Standing Water Level Chest Level Equipment UE paddles Comments Paddle on right only Spinal Exercises 2 Details Deep water stabilization Water Level [place] Equipment Large bar bells Comments Pendulum and arm pull downs only [place] Activities [place] Activities Bicycle Sit Kicks Equipment Belt Comments 30 seconds fast/30 seconds slow, 4 sets. PT-OP-T Assessment and Plan Start: 02/12/18 16:29 Freq: Status: Active Protocol: Document 03/14/18 14:40 TMS (Rec: 03/14/18 14:56 [facility] [id number]) Physical Therapy Assessment Assessment Summary Assessment Limited all L.E. motion today with treatments secondary to increased pain after last treatment. Pt. felt like hip abduction/adductio and cross country ski can increase pain if not cautious. Physical Therapy Plan Frequency and Duration Frequency of Treatment 2x/Week Duration of Treatment 3 months from 01/24/2018 Plan of Care Start Date 01/24/18 Plan of Care End Date 04/24/18 Next Visit Focus/Plan Next Visit Plan Monitor response to todays treatment and progress from there. Give cues to keep ROM within tolerance. Please Sign and Return: I have reviewed this Plan of Care and certify that the skilled therapy services above are required to meet the patient?s needs. Physician Signature Date Printed Name and Credentials Clinical Instructor Signature Printed Name and Credentials
--- NOTE | 2018-03-19 15:08 | PT.OTN ---
Current Diagnoses Spinal stenosis, lumbar region without neurogenic claudication (03/19/18) Lumbago with sciatica, right side (03/19/18) Other abnormalities of gait and mobility (03/19/18) Physical Therapy Treatment Note PT-OP-A Visit Information Start: 02/12/18 16:29 Freq: Status: Active Protocol: Document 03/19/18 12:30 CLB (Rec: 03/19/18 15:08 CLB [id number]) Out-Patient Physical Therapy Visit Information Visit Information Visit Type Treatment Note Visit Start Time 12:30 Visit Stop Time 13:15 Number of FACILITY SERVICE MANAGER Visits 4 PT-OP-C Subjective Start: 02/12/18 16:29 Freq: Status: Active Protocol: Document 03/19/18 12:30 CLB (Rec: 03/19/18 15:08 CLB [id number]) OP-PT Subjective Patient Comments Patient Comments Pt reported average pain is 2- 4/10 daily. PT-OP-Q Treatments Start: 02/16/18 15:10 Freq: Status: Active Protocol: Document 03/08/18 14:30 SAK (Rec: 03/08/18 17:00 SAK [id number]) Cardio Equipment Recumbent Stepper (Sci-Fit) Duration (Minutes) 10 Resistance 2.5 Seat Position 13 Gym Equipment Shuttle Recovery Bilateral Squats Resistance 87 Shuttle Recovery Platform Stable Reps/Time 3 x 10 Shuttle Balance 1 Details standing bal chains red Reps/Duration 4 min Comments fwd/bck, side Therapeutic Exercises Supine Exercises 4 Supine Exercise Name iliopsoas stretch Side bilateral Comments manual 3 Supine Exercise Name hamstring stretch Reps/Minutes 5 Comments standing 1 Supine Exercise Name SKTC Side bilateral Reps/Minutes 2 Other Exercises 1 Other Exercise Name HC stretch Equipment Used ARASELI Reps/Minutes 2 PT-OP-R Modalities Start: 02/16/18 16:14 Freq: Status: Active Protocol: Document 03/08/18 14:30 SAK (Rec: 03/08/18 17:00 SAK [id number]) Hot Pack/Cold Pack Treatment Cold Pack Location l/s Patient Position Hooklying Treatment Duration (minutes) 10 Patient Tolerance Good Comments after mechanical traction Spinal Traction Traction Treatment Lumbar Method Mechanical Patient Position Hooklying Intermittent Time On (Seconds) 30 Intermittent Time Off (Seconds) 10 Duration of Treatment (Minutes) 15 Heating Pad Applied Yes Traction Treatment Comment 30:10 intermittent 85lbs/65 lbs 5 min set-up Ultrasound Therapy Treatment Right Lower Back Treatment Duration (minutes) 8 Patient Position Prone Frequency Setting (mHz) 2 Intensity Setting (w/cm2) 1.5 PT-OP-S Aquatic Treatment Start: 02/12/18 16:29 Freq: Status: Active Protocol: Document 03/19/18 12:30 CLB (Rec: 03/19/18 15:08 CLB [id number]) Aquatics Treatment Pool Entry/Exit Pool Entry/Exit Method Stairs Assistance Independent Water Walking Sideways Water Level Chest Level Walking Equipment Resistance Fins Level of Assistance Standby Assistance Comments smaller steps due to pain in hip when taking larger steps last visit. Backwards Water Level Chest Level Walking Equipment Resistance Fins Level of Assistance Standby Assistance Forwards Water Level Chest Level Level of Assistance Standby Assistance Lower Extremity Stretches 2 Details Hamstring stretching Body Position Standing Water Level Chest Level Equipment Small Noodle Upper Extremity Exercises 1 Details Arm pull downs Body Position Standing Water Level Chest Level [place] Activities [place] Activities Bicycle Sit Kicks Comments 30 seconds fast/30 seconds slow, 4 sets. PT-OP-T Assessment and Plan Start: 02/12/18 16:29 Freq: Status: Active Protocol: Document 03/19/18 12:30 CLB (Rec: 03/19/18 15:08 CLB [id number]) Physical Therapy Assessment Progress Towards Goals Progress Towards Goals Progressing Toward Goals Assessment Summary Assessment Pt tolerated exercises will with few complaints of pain or discomfort. Physical Therapy Plan Frequency and Duration Frequency of Treatment 2x/Week Duration of Treatment 3 months from 01/24/2018 Plan of Care Start Date 01/24/18 Plan of Care End Date 04/24/18 Next Visit Focus/Plan Next Visit Plan Continue with goals of decreasing pain, increasing function and endurance. Please Sign and Return: I have reviewed this Plan of Care and certify that the skilled therapy services above are required to meet the patient?s needs. Physician Signature Date Printed Name and Credentials Clinical Instructor Signature Printed Name and Credentials
--- NOTE | 2018-03-28 16:57 | PT.OTN ---
Addendum entered and electronically signed by Payton Worthington, PT 03/30/18 07:22: On land activities performed on different date. Original Note: Current Diagnoses Spinal stenosis, lumbar region without neurogenic claudication (03/28/18) Lumbago with sciatica, right side (03/28/18) Other abnormalities of gait and mobility (03/28/18) Physical Therapy Treatment Note PT-OP-A Visit Information Start: 02/12/18 16:29 Freq: Status: Active Protocol: Document 03/28/18 14:25 TMS (Rec: 03/28/18 16:56 TMS [id number]) Out-Patient Physical Therapy Visit Information Visit Information Visit Type Treatment Note Visit Start Time 13:40 Visit Stop Time 14:25 Total Visit Minutes 45 Visit Number Number of COMMUTATOR PRESSER Visits 5 PT-OP-C Subjective Start: 02/12/18 16:29 Freq: Status: Active Protocol: Document 03/28/18 14:25 TMS (Rec: 03/28/18 16:56 TMS [id number]) OP-PT Subjective Patient Comments Patient Comments Pt. states he's feeling better overall, complained of continued tightness in right glut. Hoping to be able to schedule outpt. appointment soon and get ultrasound. PT-OP-Q Treatments Start: 02/16/18 15:10 Freq: Status: Active Protocol: Document 03/08/18 14:30 SAK (Rec: 03/08/18 17:00 SAK [id number]) Cardio Equipment Recumbent Stepper (Sci-Fit) Duration (Minutes) 10 Resistance 2.5 Seat Position 13 Gym Equipment Shuttle Recovery Bilateral Squats Resistance 87 Shuttle Recovery Platform Stable Reps/Time 3 x 10 Shuttle Balance 1 Details standing bal chains red Reps/Duration 4 min Comments fwd/bck, side Therapeutic Exercises Supine Exercises 4 Supine Exercise Name iliopsoas stretch Side bilateral Comments manual 3 Supine Exercise Name hamstring stretch Reps/Minutes 5 Comments standing 1 Supine Exercise Name SKTC Side bilateral Reps/Minutes 2 Other Exercises 1 Other Exercise Name HC stretch Equipment Used ARASELI Reps/Minutes 2 PT-OP-R Modalities Start: 02/16/18 16:14 Freq: Status: Active Protocol: Document 03/08/18 14:30 SAK (Rec: 03/08/18 17:00 SAK [id number]) Hot Pack/Cold Pack Treatment Cold Pack Location l/s Patient Position Hooklying Treatment Duration (minutes) 10 Patient Tolerance Good Comments after mechanical traction Spinal Traction Traction Treatment Lumbar Method Mechanical Patient Position Hooklying Intermittent Time On (Seconds) 30 Intermittent Time Off (Seconds) 10 Duration of Treatment (Minutes) 15 Heating Pad Applied Yes Traction Treatment Comment 30:10 intermittent 85lbs/65 lbs 5 min set-up Ultrasound Therapy Treatment Right Lower Back Treatment Duration (minutes) 8 Patient Position Prone Frequency Setting (mHz) 2 Intensity Setting (w/cm2) 1.5 PT-OP-S Aquatic Treatment Start: 02/12/18 16:29 Freq: Status: Active Protocol: Document 03/28/18 14:25 TMS (Rec: 03/28/18 16:56 TMS [id number]) Aquatics Treatment Pool Entry/Exit Pool Entry/Exit Method Stairs Assistance Independent Water Walking Sideways Water Level Chest Level Walking Equipment Resistance Fins Level of Assistance Standby Assistance Comments small steps Backwards Water Level Chest Level Walking Equipment Resistance Fins Level of Assistance Standby Assistance Forwards Water Level Chest Level Walking Equipment Resistance Fins Level of Assistance Standby Assistance Lower Extremity Exercises 3 Details L.E. circles Body Position Standing Water Level Chest Level Equipment Resistance Fins 2 Details Hip Flexion/Ext Body Position Standing Water Level Chest Level Equipment Resistance Fins 1 Details Hip Abduction/ADD Body Position Standing Water Level Chest Level Equipment Resistance Fins Comments Small motions Lower Extremity Stretches 2 Details Hamstring stretching Body Position Standing Water Level Chest Level Equipment Small Noodle Comments including IT band, hip ADD Spinal Exercises 2 Details Deep water stabilization Water Level [place] Equipment Large bar bells [place] Activities [place] Activities Bicycle Cross [place] Sit Kicks Equipment Belt, small resistance fins Comments 30 seconds fast/30 seconds slow, 4 sets. PT-OP-T Assessment and Plan Start: 02/12/18 16:29 Freq: Status: Active Protocol: Document 03/28/18 14:25 TMS (Rec: 03/28/18 16:56 [facility] [id number]) Physical Therapy Assessment Assessment Summary Assessment Pt. tolerated added resistance fins with deep water cycling, tolerated motion of right hip abduction well as long as he kept motion minimal. Physical Therapy Plan Frequency and Duration Frequency of Treatment 2x/Week Duration of Treatment 3 months from 01/24/2018 Plan of Care Start Date 01/24/18 Plan of Care End Date 04/24/18 Next Visit Focus/Plan Next Visit Plan Continue with goals of decreasing pain, increasing function and endurance.
--- NOTE | 2018-04-06 16:16 | PT.OTN ---
Current Diagnoses Spinal stenosis, lumbar region without neurogenic claudication (04/06/18) Lumbago with sciatica, right side (04/06/18) Other abnormalities of gait and mobility (04/06/18) Physical Therapy Treatment Note PT-OP-A Visit Information Start: 02/12/18 16:29 Freq: Status: Active Protocol: Document 04/06/18 16:08 [facility] (Rec: 04/06/18 16:16 [facility] [id number]) Out-Patient Physical Therapy Visit Information Visit Information Visit Type Treatment Note Visit Start Time 13:15 Visit Stop Time 14:02 Total Visit Minutes 47 Visit Number Number of FIELD REIMBURSEMENT MANAGER Visits 0 PT-OP-C Subjective Start: 02/12/18 16:29 Freq: Status: Active Protocol: Document 04/06/18 16:08 SAK (Rec: 04/06/18 16:16 [facility] [id number]) OP-PT Subjective Patient Comments Patient Comments Reports had been feeling better with pain in new injury area mostly 2/10, but states last week after taking walk pain increased to 4/10 and hasn't subsided. PT-OP-Q Treatments Start: 02/16/18 15:10 Freq: Status: Active Protocol: Document 03/08/18 14:30 SAK (Rec: 03/08/18 17:00 SAK [id number]) Cardio Equipment Recumbent Stepper (Sci-Fit) Duration (Minutes) 10 Resistance 2.5 Seat Position 13 Gym Equipment Shuttle Recovery Bilateral Squats Resistance 87 Shuttle Recovery Platform Stable Reps/Time 3 x 10 Shuttle Balance 1 Details standing bal chains red Reps/Duration 4 min Comments fwd/bck, side Therapeutic Exercises Supine Exercises 4 Supine Exercise Name iliopsoas stretch Side bilateral Comments manual 3 Supine Exercise Name hamstring stretch Reps/Minutes 5 Comments standing 1 Supine Exercise Name SKTC Side bilateral Reps/Minutes 2 Other Exercises 1 Other Exercise Name HC stretch Equipment Used ARASELI Reps/Minutes 2 PT-OP-R Modalities Start: 02/16/18 16:14 Freq: Status: Active Protocol: Document 03/08/18 14:30 SAK (Rec: 03/08/18 17:00 SAK [id number]) Hot Pack/Cold Pack Treatment Cold Pack Location l/s Patient Position Hooklying Treatment Duration (minutes) 10 Patient Tolerance Good Comments after mechanical traction Spinal Traction Traction Treatment Lumbar Method Mechanical Patient Position Hooklying Intermittent Time On (Seconds) 30 Intermittent Time Off (Seconds) 10 Duration of Treatment (Minutes) 15 Heating Pad Applied Yes Traction Treatment Comment 30:10 intermittent 85lbs/65 lbs 5 min set-up Ultrasound Therapy Treatment Right Lower Back Treatment Duration (minutes) 8 Patient Position Prone Frequency Setting (mHz) 2 Intensity Setting (w/cm2) 1.5 PT-OP-S Aquatic Treatment Start: 02/12/18 16:29 Freq: Status: Active Protocol: Document 04/06/18 16:08 [facility] (Rec: 04/06/18 16:16 [facility] [id number]) Aquatics Treatment Pool Entry/Exit Pool Entry/Exit Method Stairs Assistance Independent Spinal Exercises 1 Details tiltboard and kickboard (3) sit Reps/Duration 5 min 2 Details Deep water stabilization Water Level [place] Equipment Large bar bells [place] Activities [place] Activities Bicycle Cross [place] Sit Kicks Equipment Belt, small resistance fins Duration 15 Comments 30 seconds fast/30 seconds slow, 10 sets Manual Techniques Bad Ragaz supine for spinal relaxation, ROM, pain management WATSU for pain management and relaxation Aquatic Massage right lumbosacral spine PT-OP-T Assessment and Plan Start: 02/12/18 16:29 Freq: Status: Active Protocol: Document 04/06/18 16:08 [facility] (Rec: 04/06/18 16:16 [facility] [id number]) Physical Therapy Assessment Progress Towards Goals Progress Towards Goals Progressing Toward Goals Assessment Summary Assessment Tolerated all activities well except c/o pain with suspended hip abd deep water on right Physical Therapy Plan Frequency and Duration Frequency of Treatment 2x/Week Duration of Treatment 3 months from 01/24/2018 Plan of Care Start Date 01/24/18 Plan of Care End Date 04/24/18 Next Visit Focus/Plan Next Note Type Treatment Note Next Visit Plan Continue PT for pain management, strengthening, core stabilization to improve activity tolerance and return to prior level of function
--- NOTE | 2018-04-10 15:32 | PT.OTN ---
Current Diagnoses Spinal stenosis, lumbar region without neurogenic claudication (04/10/18) Lumbago with sciatica, right side (04/10/18) Other abnormalities of gait and mobility (04/10/18) Physical Therapy Treatment Note PT-OP-A Visit Information Start: 02/12/18 16:29 Freq: Status: Active Protocol: Document 04/10/18 14:30 SAK (Rec: 04/10/18 15:15 SAK [id number]) Out-Patient Physical Therapy Visit Information Visit Information Visit Type Treatment Note Visit Start Time 14:30 Visit Stop Time 14:30 Visit Number Number of SHELLFISH MEAT SEPARATOR OPERATOR Visits 0 PT-OP-C Subjective Start: 02/12/18 16:29 Freq: Status: Active Protocol: Document 04/10/18 14:30 SAK (Rec: 04/10/18 15:15 SAK [id number]) OP-PT Subjective Patient Comments Patient Comments Pain 4-6/10 today. Looking forward to ultrasound and traction today. Has to be very careful getting out of bed. PT-OP-Q Treatments Start: 02/16/18 15:10 Freq: Status: Active Protocol: Document 04/10/18 14:30 SAK (Rec: 04/10/18 15:15 SAK [id number]) Cardio Equipment Recumbent Stepper (Sci-Fit) Duration (Minutes) 10 Resistance 3.0 Seat Position 13 Gym Equipment Shuttle Recovery Unilateral Squats Resistance 50 Shuttle Recovery Platform Stable Reps/Time 2 x 10 Bilateral Squats Resistance 75 Shuttle Recovery Platform Stable Reps/Time 2 x 10 Therapeutic Exercises Supine Exercises 5 Supine Exercise Name hip flexor stretch Side bilateral Equipment Used Manual assist for opp KTC Comments Alvaro stretch PT-OP-R Modalities Start: 02/16/18 16:14 Freq: Status: Active Protocol: Document 04/10/18 14:30 SAK (Rec: 04/10/18 15:15 SAK [id number]) Hot Pack/Cold Pack Treatment Cold Pack Location lumbar spine Patient Position Hooklying Treatment Duration (minutes) 15 Patient Tolerance Good Spinal Traction Traction Treatment Lumbar Method Mechanical Patient Position Hooklying Force Applied (Pounds) 85 Intermittent Time On (Seconds) 30 Intermittent Time Off (Seconds) 10 Duration of Treatment (Minutes) 15 Heating Pad Applied Yes Ultrasound Therapy Treatment Right Lower Back Treatment Duration (minutes) 8 Patient Position Prone Frequency Setting (mHz) 1 Duty Cycle 100% Intensity Setting (w/cm2) 1.6 PT-OP-S Aquatic Treatment Start: 02/12/18 16:29 Freq: Status: Active Protocol: Document 04/06/18 16:08 [facility] (Rec: 04/06/18 16:16 [facility] [id number]) Aquatics Treatment Pool Entry/Exit Pool Entry/Exit Method Stairs Assistance Independent Spinal Exercises 1 Details tiltboard and kickboard (3) sit Reps/Duration 5 min 2 Details Deep water stabilization Water Level [place] Equipment Large bar bells [place] Activities [place] Activities Bicycle Cross [place] Sit Kicks Equipment Belt, small resistance fins Duration 15 Comments 30 seconds fast/30 seconds slow, 10 sets Manual Techniques Bad Ragaz supine for spinal relaxation, ROM, pain management WATSU for pain management and relaxation Aquatic Massage right lumbosacral spine PT-OP-T Assessment and Plan Start: 02/12/18 16:29 Freq: Status: Active Protocol: Document 04/10/18 14:30 [facility] (Rec: 04/10/18 15:15 [facility] [id number]) Physical Therapy Assessment Progress Towards Goals Progress Towards Goals Progressing Toward Goals Assessment Summary Assessment Patient reports decreased pain with treatment today. Physical Therapy Plan Frequency and Duration Frequency of Treatment 2x/Week Duration of Treatment 3 months from 01/24/2018 Plan of Care Start Date 01/24/18 Plan of Care End Date 04/24/18 Next Visit Focus/Plan Next Note Type Treatment Note Next Visit Plan progression of ther ex as tolerated for strengthening, flexibility, core stabilization, pain managment.
--- NOTE | 2018-04-13 14:00 | PT.OTN ---
Current Diagnoses Spinal stenosis, lumbar region without neurogenic claudication (04/13/18) Lumbago with sciatica, right side (04/13/18) Other abnormalities of gait and mobility (04/13/18) Physical Therapy Treatment Note PT-OP-A Visit Information Start: 02/12/18 16:29 Freq: Status: Active Protocol: Document 04/13/18 14:00 TMS (Rec: 04/13/18 15:57 TMS [email or web address]) Out-Patient Physical Therapy Visit Information Visit Information Visit Type Treatment Note Visit Start Time 13:15 Visit Stop Time 14:00 Total Visit Minutes 45 Visit Number Number of SENIOR SALES ASSOCIATE Visits 1 PT-OP-C Subjective Start: 02/12/18 16:29 Freq: Status: Active Protocol: Document 04/13/18 14:00 TMS (Rec: 04/13/18 15:57 TMS [email or web address]) OP-PT Subjective Patient Comments Patient Comments Pt. states he felt like he was beat up after last land treatment. I asked for 75# traction but it was too much. PT-OP-Q Treatments Start: 02/16/18 15:10 Freq: Status: Active Protocol: Document 04/10/18 14:30 SAK (Rec: 04/10/18 15:15 SAK [id number]) Cardio Equipment Recumbent Stepper (Sci-Fit) Duration (Minutes) 10 Resistance 3.0 Seat Position 13 Gym Equipment Shuttle Recovery Unilateral Squats Resistance 50 Shuttle Recovery Platform Stable Reps/Time 2 x 10 Bilateral Squats Resistance 75 Shuttle Recovery Platform Stable Reps/Time 2 x 10 Therapeutic Exercises Supine Exercises 5 Supine Exercise Name hip flexor stretch Side bilateral Equipment Used Manual assist for opp KTC Comments Alvaro stretch PT-OP-R Modalities Start: 02/16/18 16:14 Freq: Status: Active Protocol: Document 04/10/18 14:30 SAK (Rec: 04/10/18 15:15 SAK [id number]) Hot Pack/Cold Pack Treatment Cold Pack Location lumbar spine Patient Position Hooklying Treatment Duration (minutes) 15 Patient Tolerance Good Spinal Traction Traction Treatment Lumbar Method Mechanical Patient Position Hooklying Force Applied (Pounds) 85 Intermittent Time On (Seconds) 30 Intermittent Time Off (Seconds) 10 Duration of Treatment (Minutes) 15 Heating Pad Applied Yes Ultrasound Therapy Treatment Right Lower Back Treatment Duration (minutes) 8 Patient Position Prone Frequency Setting (mHz) 1 Duty Cycle 100% Intensity Setting (w/cm2) 1.6 PT-OP-S Aquatic Treatment Start: 02/12/18 16:29 Freq: Status: Active Protocol: Document 04/13/18 14:00 TMS (Rec: 04/13/18 15:57 [facility] [email or web address]) Aquatics Treatment Pool Entry/Exit Pool Entry/Exit Method Stairs Assistance Independent Water Walking Forwards Water Level Chest Level Level of Assistance Standby Assistance Lower Extremity Stretches 2 Details Hamstring stretching Body Position Standing Water Level Chest Level Equipment Small Noodle Comments Small noodle for right, white noodle for left. Also IT band/ Adductors 1 Details Single knee to chest Body Position Standing Reps/Duration x2/30 seconds Spinal Exercises 4 Details Arm pull downs; flex/ext, Hor Ab/Ad Body Position Standing Water Level Chest Level Reps/Duration x10 bilateral,x 5 unilateral Comments With stabilization emphasis 3 Details Standing on large barbell Body Position Standing Water Level [place] Reps/Duration 10 minutes Comments Traveling forward/backwards, also reverse squats. 1 Details Sitting on 3 kick boards Reps/Duration 5 min. Comments Also with throwing ball [place] Activities [place] Activities Bicycle Cross [place] Hip Abduction/Adduction Sit Kicks Equipment Belt Comments 30 seconds fast/30 seconds slow, 5 sets each. PT-OP-T Assessment and Plan Start: 02/12/18 16:29 Freq: Status: Active Protocol: Document 04/13/18 14:00 TMS (Rec: 04/13/18 15:57 [facility] [email or web address]) Physical Therapy Assessment Assessment Summary Assessment Pt. liked challenge of barbell standing/squats, did without increase in pain. Physical Therapy Plan Frequency and Duration Frequency of Treatment 2x/Week Duration of Treatment 3 months from 01/24/2018 Plan of Care Start Date 01/24/18 Plan of Care End Date 04/24/18 Next Visit Focus/Plan Next Visit Plan progression of ther ex as tolerated for strengthening, flexibility, core stabilization, pain management.
--- NOTE | 2018-04-18 14:30 | PT.OTN ---
Current Diagnoses Spinal stenosis, lumbar region without neurogenic claudication (04/18/18) Lumbago with sciatica, right side (04/18/18) Other abnormalities of gait and mobility (04/18/18) Physical Therapy Treatment Note PT-OP-A Visit Information Start: 02/12/18 16:29 Freq: Status: Active Protocol: Document 04/18/18 14:30 TMS (Rec: 04/18/18 16:21 TMS [email or web address]) Out-Patient Physical Therapy Visit Information Visit Information Visit Type Treatment Note Visit Start Time 13:45 Visit Stop Time 14:30 Total Visit Minutes 45 Visit Number Number of TRIM STENCIL MAKER Visits 2 PT-OP-C Subjective Start: 02/12/18 16:29 Freq: Status: Active Protocol: Document 04/18/18 14:30 TMS (Rec: 04/18/18 16:21 TMS [email or web address]) OP-PT Subjective Patient Comments Patient Comments Pt. states he's had a twinge of pain in right hip/low back today. Rates pain at 4/10. PT-OP-Q Treatments Start: 02/16/18 15:10 Freq: Status: Active Protocol: Document 04/10/18 14:30 SAK (Rec: 04/10/18 15:15 SAK [id number]) Cardio Equipment Recumbent Stepper (Sci-Fit) Duration (Minutes) 10 Resistance 3.0 Seat Position 13 Gym Equipment Shuttle Recovery Unilateral Squats Resistance 50 Shuttle Recovery Platform Stable Reps/Time 2 x 10 Bilateral Squats Resistance 75 Shuttle Recovery Platform Stable Reps/Time 2 x 10 Therapeutic Exercises Supine Exercises 5 Supine Exercise Name hip flexor stretch Side bilateral Equipment Used Manual assist for opp KTC Comments Alvaro stretch PT-OP-R Modalities Start: 02/16/18 16:14 Freq: Status: Active Protocol: Document 04/10/18 14:30 SAK (Rec: 04/10/18 15:15 SAK [id number]) Hot Pack/Cold Pack Treatment Cold Pack Location lumbar spine Patient Position Hooklying Treatment Duration (minutes) 15 Patient Tolerance Good Spinal Traction Traction Treatment Lumbar Method Mechanical Patient Position Hooklying Force Applied (Pounds) 85 Intermittent Time On (Seconds) 30 Intermittent Time Off (Seconds) 10 Duration of Treatment (Minutes) 15 Heating Pad Applied Yes Ultrasound Therapy Treatment Right Lower Back Treatment Duration (minutes) 8 Patient Position Prone Frequency Setting (mHz) 1 Duty Cycle 100% Intensity Setting (w/cm2) 1.6 PT-OP-S Aquatic Treatment Start: 02/12/18 16:29 Freq: Status: Active Protocol: Document 04/18/18 14:30 TMS (Rec: 04/18/18 16:21 TMS [email or web address]) Aquatics Treatment Pool Entry/Exit Pool Entry/Exit Method Stairs Assistance Independent Water Walking Forwards Water Level Chest Level Level of Assistance Standby Assistance Lower Extremity Stretches 2 Details Hamstring stretching Body Position Standing Water Level Chest Level Equipment Small Noodle Comments including IT band Spinal Exercises 5 Details [place] position Body Position Supine Water Level [place] Equipment long barbell under ankles, neck float 3 Details Standing on large barbell Body Position Standing Water Level [place] Reps/Duration 10 minutes Comments Traveling forward/backwards, also reverse squats. 1 Details Sitting on 3 kick boards Reps/Duration 5 min. [place] Activities [place] Activities Bicycle Cross [place] Hip Abduction/Adduction Sit Kicks Equipment Belt Comments 30 seconds fast/30 seconds slow, 5 sets each. PT-OP-T Assessment and Plan Start: 02/12/18 16:29 Freq: Status: Active Protocol: Document 04/18/18 14:30 TMS (Rec: 04/18/18 16:21 TMS [email or web address]) Physical Therapy Assessment Assessment Summary Assessment Pt. without complaints with aquatics, cues to keep ROM within tolerance, especially with hip AB/AD in deep. Physical Therapy Plan Next Visit Focus/Plan Next Visit Plan progression of ther ex as tolerated for strengthening, flexibility, core stabilization, pain managment.
--- NOTE | 2018-04-20 15:11 | PT.OTN ---
Current Diagnoses Spinal stenosis, lumbar region without neurogenic claudication (04/20/18) Lumbago with sciatica, right side (04/20/18) Other abnormalities of gait and mobility (04/20/18) Physical Therapy Treatment Note PT-OP-A Visit Information Start: 02/12/18 16:29 Freq: Status: Active Protocol: Document 04/20/18 13:41 [facility] (Rec: 04/20/18 15:10 [facility] [id number]) Out-Patient Physical Therapy Visit Information Visit Information Visit Type Treatment Note Visit Note 19 total visits Visit Start Time 13:45 Visit Stop Time 14:50 Total Visit Minutes 65 Visit Number 10/18 Number of EQUIPMENT PLANNER Visits 0 PT-OP-C Subjective Start: 02/12/18 16:29 Freq: Status: Active Protocol: Document 04/20/18 13:41 [facility] (Rec: 04/20/18 15:10 [facility] [id number]) OP-PT Subjective Patient Comments Patient Comments Sore all weekend after traction like he had done a really big workout. Patient Questionnaires Oswestry Low Back Index Oswestry Score 56 Oswestry Impairment 40 to 59% Impaired (Score 40- 59) PT-OP-Q Treatments Start: 02/16/18 15:10 Freq: Status: Active Protocol: Document 04/20/18 13:41 [facility] (Rec: 04/20/18 15:10 [facility] [id number]) Cardio Equipment Recumbent Stepper (Sci-Fit) Duration (Minutes) 10 Resistance 3.0 Seat Position 13 Therapeutic Exercises Supine Exercises 5 Supine Exercise Name hip flexor stretch Side bilateral Equipment Used Manual assist for opp KTC Comments Alvaro stretch 4 Supine Exercise Name piriformis stretch Comments w/towel 3 Supine Exercise Name HS stretch Comments c/r 2 Supine Exercise Name heel slide with core tightness Reps/Minutes 10 1 Supine Exercise Name SLR with core tight Reps/Minutes 10 Comments w/pt hands under back to check for facilitaiton. PT-OP-R Modalities Start: 02/16/18 16:14 Freq: Status: Active Protocol: Document 04/20/18 13:41 [facility] (Rec: 04/20/18 15:10 [facility] [id number]) Hot Pack/Cold Pack Treatment Hot Pack Location lumbar Patient Position Hooklying Treatment Duration (minutes) 10 Cold Pack Location lumbar spine Patient Position Hooklying Treatment Duration (minutes) 10 Patient Tolerance Good Ultrasound Therapy Treatment Right Lower Back Treatment Duration (minutes) 8 Patient Position Prone Frequency Setting (mHz) 1 Duty Cycle 100% Intensity Setting (w/cm2) 1.6 PT-OP-S Aquatic Treatment Start: 02/12/18 16:29 Freq: Status: Active Protocol: Document 04/18/18 14:30 TMS (Rec: 04/18/18 16:21 TMS [email or web address]) Aquatics Treatment Pool Entry/Exit Pool Entry/Exit Method Stairs Assistance Independent Water Walking Forwards Water Level Chest Level Level of Assistance Standby Assistance Lower Extremity Stretches 2 Details Hamstring stretching Body Position Standing Water Level Chest Level Equipment Small Noodle Comments including IT band Spinal Exercises 5 Details [place] position Body Position Supine Water Level [place] Equipment long barbell under ankles, neck float 3 Details Standing on large barbell Body Position Standing Water Level [place] Reps/Duration 10 minutes Comments Traveling forward/backwards, also reverse squats. 1 Details Sitting on 3 kick boards Reps/Duration 5 min. [place] Activities [place] Activities Bicycle [place] Hip Abduction/Adduction Sit Kicks Equipment Belt Comments 30 seconds fast/30 seconds slow, 5 sets each. PT-OP-T Assessment and Plan Start: 02/12/18 16:29 Freq: Status: Active Protocol: Document 04/20/18 13:41 [facility] (Rec: 04/20/18 15:10 [facility] [id number]) Physical Therapy Assessment Impairments Impairments Balance Gait Pain Posture ROM Soft Tissue Mobility Strength Goals Six Impairment lacks home program [facility] Goal (LTG) Independent with HEP, aquatic exercise program LTG Duration 06/21/18-progressing HEP Five Impairment antalgic gait [facility] Goal (LTG) Patient able to ambulate without limp LTG Duration 06/21/18 Four Impairment Painful transitional movements Torpedo Worker Goal (LTG) Able to transition sit to stand without an increase in pain LTG Duration 06/21/18-excellent progress minor pain Three Impairment Guarded movement Torpedo Worker Goal (LTG) Patient able to return to pre- injury movement without guarding LTG Duration 06/21/18 Two Impairment decreased activity tolerance [facility] Goal (LTG) Improve Oswestery disability index score to no greater than 15% LTG Duration 06/21/18 One Impairment pain [facility] Goal (LTG) Patient able to return to all prior activities and improve his sleep to pre-injury levels . LTG Duration 06/21/18 Assessment Summary Assessment Pt is making good functional progress, but cont to still have weak core and dec sleep time along with dec ability to activities. Physical Therapy Plan Frequency and Duration Frequency of Treatment 2x/Week Duration of Treatment 3 months from 01/24/2018 Plan of Care Start Date 01/24/18 Plan of Care End Date 04/24/18 Therapeutic Interventions Therapeutic Interventions Aquatic Therapy Balance Training Gait Training Home Exercise Program Joint Mobilizations Manual Therapy Soft Tissue Mobilization Taping Therapeutic Exercises Modalities Cold Pack/Ice Massage Electric Stimulation Hot Packs Traction- Mechanical Ultrasound Next Visit Focus/Plan Next Note Type Treatment Note Next Visit Plan Advance core stability
--- NOTE | 2018-04-20 15:12 | PT.OPPOC ---
Current Diagnoses Spinal stenosis, lumbar region without neurogenic claudication (04/20/18) Lumbago with sciatica, right side (04/20/18) Other abnormalities of gait and mobility (04/20/18) Provider Visit Care Team Role Provider Type Oskar Posey MD Family Provider Physician Primary Care Provider Specialty: Internal Medicine Address: [address] [place] [address] Email: Jay Pierson MD Attending Provider Physician Specialty: Internal Medicine Address: [address] [place] [address], [id number] Email: Plan Of Care PT-OP-T Assessment and Plan Start: 02/12/18 16:29 Freq: Status: Active Protocol: Document 04/20/18 13:41 [facility] (Rec: 04/20/18 15:10 [facility] [id number]) Physical Therapy Assessment Impairments Impairments Balance Gait Pain Posture ROM Soft Tissue Mobility Strength Goals Six Impairment lacks home program Long-Term Goal (LTG) Independent with HEP, aquatic exercise program LTG Duration 06/21/18-progressing HEP Five Impairment antalgic gait Long-Term Goal (LTG) Patient able to ambulate without limp LTG Duration 06/21/18 Four Impairment Painful transitional movements Chorus Master Goal (LTG) Able to transition sit to stand without an increase in pain LTG Duration 06/21/18-excellent progress minor pain Three Impairment Guarded movement Chorus Master Goal (LTG) Patient able to return to pre- injury movement without guarding LTG Duration 06/21/18 Two Impairment decreased activity tolerance Chorus Master Goal (LTG) Improve Oswestery disability index score to no greater than 15% LTG Duration 06/21/18 One Impairment pain Chorus Master Goal (LTG) Patient able to return to all prior activities and improve his sleep to pre-injury levels . LTG Duration 06/21/18 Assessment Summary Assessment Pt is making good functional progress, but cont to still have weak core and dec sleep time along with dec ability to activities. Physical Therapy Plan Frequency and Duration Frequency of Treatment 2x/Week Duration of Treatment 3 months from 01/24/2018 Plan of Care Start Date 04/20/18 Plan of Care End Date 06/21/18 Therapeutic Interventions Therapeutic Interventions Aquatic Therapy Balance Training Gait Training Home Exercise Program Joint Mobilizations Manual Therapy Soft Tissue Mobilization Taping Therapeutic Exercises Modalities Cold Pack/Ice Massage Electric Stimulation Hot Packs Traction- Mechanical Ultrasound Next Visit Focus/Plan Next Note Type Treatment Note Next Visit Plan Advance core stability Plan of Care Dates Plan of Care Start Date 04/20/18 Plan of Care End Date 06/21/18 Please Sign and Return: I have reviewed this Plan of Care and certify that the skilled therapy services above are required to meet the patient?s needs. Physician Signature Date Printed Name and Credentials Clinical Instructor Signature Printed Name and Credentials
--- NOTE | 2018-04-23 16:53 | PT.OTN ---
Current Diagnoses Spinal stenosis, lumbar region without neurogenic claudication (04/23/18) Lumbago with sciatica, right side (04/23/18) Other abnormalities of gait and mobility (04/23/18) Physical Therapy Treatment Note PT-OP-A Visit Information Start: 02/12/18 16:29 Freq: Status: Active Protocol: Document 04/23/18 13:15 SAK (Rec: 04/23/18 16:52 [facility] [id number]) Out-Patient Physical Therapy Visit Information Visit Information Visit Type Treatment Note Visit Note 20 total vfisits Visit Start Time 13:45 Visit Stop Time 14:45 Total Visit Minutes 65 Visit Number 20 Number of TERRA COTTA MASON Visits 0 PT-OP-C Subjective Start: 02/12/18 16:29 Freq: Status: Active Protocol: Document 04/23/18 13:15 SAK (Rec: 04/23/18 16:52 [facility] [id number]) OP-PT Subjective Patient Comments Patient Comments Requests no traction again today. Pain 2/10. PT-OP-Q Treatments Start: 02/16/18 15:10 Freq: Status: Active Protocol: Document 04/23/18 13:15 SAK (Rec: 04/23/18 16:52 [facility] [id number]) Cardio Equipment Recumbent Stepper (Sci-Fit) Duration (Minutes) 10 Resistance 4.0 Seat Position 13 Gym Equipment Shuttle Recovery Unilateral Squats Resistance 62 Shuttle Recovery Platform Stable Reps/Time 2 x 10 Bilateral Squats Resistance 100 Shuttle Recovery Platform Stable Reps/Time 2 x 10 Therapeutic Exercises Supine Exercises 5 Supine Exercise Name hip flexor stretch Side bilateral Equipment Used Manual assist for opp KTC Comments Alvaro stretch 4 Supine Exercise Name piriformis stretch Comments w/towel 3 Supine Exercise Name HS stretch Comments c/r 2 Supine Exercise Name heel slide with core tightness Reps/Minutes 10 1 Supine Exercise Name SLR with core tight Reps/Minutes 10 Comments w/pt hands under back to check for facilitaiton. PT-OP-R Modalities Start: 02/16/18 16:14 Freq: Status: Active Protocol: Document 04/23/18 13:15 SAK (Rec: 04/23/18 16:52 SAK [id number]) Hot Pack/Cold Pack Treatment Hot Pack Location lumbar Patient Position Prone Treatment Duration (minutes) 15 Ultrasound Therapy Treatment Right Lower Back Treatment Duration (minutes) 8 Patient Position Prone Frequency Setting (mHz) 1 Duty Cycle 100% Intensity Setting (w/cm2) 1.6 PT-OP-S Aquatic Treatment Start: 02/12/18 16:29 Freq: Status: Active Protocol: Document 04/18/18 14:30 TMS (Rec: 04/18/18 16:21 TMS [email or web address]) Aquatics Treatment Pool Entry/Exit Pool Entry/Exit Method Stairs Assistance Independent Water Walking Forwards Water Level Chest Level Level of Assistance Standby Assistance Lower Extremity Stretches 2 Details Hamstring stretching Body Position Standing Water Level Chest Level Equipment Small Noodle Comments including IT band Spinal Exercises 5 Details [place] position Body Position Supine Water Level [place] Equipment long barbell under ankles, neck float 3 Details Standing on large barbell Body Position Standing Water Level [place] Reps/Duration 10 minutes Comments Traveling forward/backwards, also reverse squats. 1 Details Sitting on 3 kick boards Reps/Duration 5 min. [place] Activities [place] Activities Bicycle [place] Hip Abduction/Adduction Sit Kicks Equipment Belt Comments 30 seconds fast/30 seconds slow, 5 sets each. PT-OP-T Assessment and Plan Start: 02/12/18 16:29 Freq: Status: Active Protocol: Document 04/23/18 13:15 [facility]AK (Rec: 04/23/18 16:52 [facility] [id number]) Physical Therapy Assessment Impairments Impairments Balance Gait Pain Posture ROM Soft Tissue Mobility Strength Goals Six Impairment lacks home program Home Care Associate Goal (LTG) Independent with HEP, aquatic exercise program LTG Duration 06/21/18-progressing HEP Five Impairment antalgic gait Correction Goal (LTG) Patient able to ambulate without limp LTG Duration 06/21/18 Four Impairment Painful transitional movements Home Care Associate Goal (LTG) Able to transition sit to stand without an increase in pain LTG Duration 06/21/18-excellent progress minor pain Three Impairment Guarded movement Correction Goal (LTG) Patient able to return to pre- injury movement without guarding LTG Duration 06/21/18 Two Impairment decreased activity tolerance Correction Goal (LTG) Improve Oswestery disability index score to no greater than 15% LTG Duration 06/21/18 One Impairment pain Home Care Associate Goal (LTG) Patient able to return to all prior activities and improve his sleep to pre-injury levels . LTG Duration 06/21/18 Assessment Summary Assessment Improved flexibility noted today, improved exercise tolerance and able to increase resistanace on shuttle leg press. Decreased pain level. Physical Therapy Plan Frequency and Duration Frequency of Treatment 2x/Week Duration of Treatment 3 months from 01/24/2018 Plan of Care Start Date 04/20/18 Plan of Care End Date 06/21/18 Therapeutic Interventions Therapeutic Interventions Aquatic Therapy Balance Training Gait Training Home Exercise Program Joint Mobilizations Manual Therapy Soft Tissue Mobilization Taping Therapeutic Exercises Modalities Cold Pack/Ice Massage Electric Stimulation Hot Packs Traction- Mechanical Ultrasound Next Visit Focus/Plan Next Note Type Treatment Note Next Visit Plan Advance core stability
--- NOTE | 2018-05-01 17:37 | PT.OTN ---
Current Diagnoses Spinal stenosis, lumbar region without neurogenic claudication (05/01/18) Lumbago with sciatica, right side (05/01/18) Other abnormalities of gait and mobility (05/01/18) Physical Therapy Treatment Note PT-OP-A Visit Information Start: 02/12/18 16:29 Freq: Status: Active Protocol: Document 05/01/18 17:25 GGD (Rec: 05/01/18 17:32 GGD [email or web address]) Out-Patient Physical Therapy Visit Information Visit Information Visit Type Treatment Note Total Visit Minutes 60 Visit Number 21 Number of COMPUTER NETWORK ENGINEER Visits 1 PT-OP-C Subjective Start: 02/12/18 16:29 Freq: Status: Active Protocol: Document 05/01/18 17:25 GGD (Rec: 05/01/18 17:32 GGD [email or web address]) OP-PT Subjective Patient Comments Patient Comments Pt states that he woke up with increase in pain and decrease after doing HEP. PT-OP-Q Treatments Start: 02/16/18 15:10 Freq: Status: Active Protocol: Document 05/01/18 17:25 GGD (Rec: 05/01/18 17:32 GGD [email or web address]) Cardio Equipment Recumbent Stepper (Sci-Fit) Duration (Minutes) 10 Resistance 4.0 Seat Position 13 Therapeutic Exercises Supine Exercises 5 Supine Exercise Name hip flexor stretch Side bilateral Equipment Used Manual assist for opp KTC Comments Alvaro stretch 4 Supine Exercise Name piriformis stretch Comments w/towel 3 Supine Exercise Name HS stretch Comments c/r 2 Supine Exercise Name heel slide with core tightness Reps/Minutes 10 1 Supine Exercise Name SLR with core tight Reps/Minutes 10 Comments w/pt hands under back to check for facilitaiton. PT-OP-R Modalities Start: 02/16/18 16:14 Freq: Status: Active Protocol: Document 05/01/18 17:25 GGD (Rec: 05/01/18 17:32 GGD [email or web address]) Hot Pack/Cold Pack Treatment Hot Pack Location lumbar Patient Position Prone Treatment Duration (minutes) 10 Cold Pack Location lumbar spine Patient Position Hooklying Treatment Duration (minutes) 10 Patient Tolerance Good Ultrasound Therapy Treatment Right Lower Back Treatment Duration (minutes) 8 Patient Position Prone Frequency Setting (mHz) 1 Duty Cycle 100% Intensity Setting (w/cm2) 1.6 PT-OP-S Aquatic Treatment Start: 02/12/18 16:29 Freq: Status: Active Protocol: Document 04/18/18 14:30 TMS (Rec: 04/18/18 16:21 TMS [email or web address]) Aquatics Treatment Pool Entry/Exit Pool Entry/Exit Method Stairs Assistance Independent Water Walking Forwards Water Level Chest Level Level of Assistance Standby Assistance Lower Extremity Stretches 2 Details Hamstring stretching Body Position Standing Water Level Chest Level Equipment Small Noodle Comments including IT band Spinal Exercises 5 Details [place] position Body Position Supine Water Level [place] Equipment long barbell under ankles, neck float 3 Details Standing on large barbell Body Position Standing Water Level [place] Reps/Duration 10 minutes Comments Traveling forward/backwards, also reverse squats. 1 Details Sitting on 3 kick boards Reps/Duration 5 min. [place] Activities [place] Activities Bicycle Cross [place] Hip Abduction/Adduction Sit Kicks Equipment Belt Comments 30 seconds fast/30 seconds slow, 5 sets each. PT-OP-T Assessment and Plan Start: 02/12/18 16:29 Freq: Status: Active Protocol: Document 05/01/18 17:25 GGD (Rec: 05/01/18 17:32 GGD [email or web address]) Physical Therapy Assessment Assessment Summary Assessment Pt has improved flexibility. He had decrease in pain with treatment Physical Therapy Plan Frequency and Duration Frequency of Treatment 2x/Week Duration of Treatment 3 months from 01/24/2018 Plan of Care Start Date 04/20/18 Plan of Care End Date 06/21/18 Therapeutic Interventions Therapeutic Interventions Aquatic Therapy Balance Training Gait Training Home Exercise Program Joint Mobilizations Manual Therapy Soft Tissue Mobilization Taping Therapeutic Exercises Modalities Cold Pack/Ice Massage Electric Stimulation Hot Packs Traction- Mechanical Ultrasound Next Visit Focus/Plan Next Note Type Treatment Note Next Visit Plan Advance core stability
--- NOTE | 2018-05-08 16:09 | PT.OTN ---
Current Diagnoses Spinal stenosis, lumbar region without neurogenic claudication (05/08/18) Lumbago with sciatica, right side (05/08/18) Other abnormalities of gait and mobility (05/08/18) Physical Therapy Treatment Note PT-OP-A Visit Information Start: 02/12/18 16:29 Freq: Status: Active Protocol: Document 05/08/18 15:55 GGD (Rec: 05/08/18 16:08 GGD [email or web address]) Out-Patient Physical Therapy Visit Information Visit Information Visit Type Treatment Note Visit Start Time 15:10 Visit Stop Time 16:10 Total Visit Minutes 58 Visit Number 22 Number of PAINT ROLLER COVERS SUPERVISOR Visits 2 PT-OP-C Subjective Start: 02/12/18 16:29 Freq: Status: Active Protocol: Document 05/08/18 15:55 GGD (Rec: 05/08/18 16:08 GGD [email or web address]) OP-PT Subjective Patient Comments Patient Comments Pt states that he had increase in back pain with walking about 1.5 miles of flat ground . PT-OP-Q Treatments Start: 02/16/18 15:10 Freq: Status: Active Protocol: Document 05/08/18 15:55 GGD (Rec: 05/08/18 16:08 GGD [email or web address]) Cardio Equipment Recumbent Stepper (Sci-Fit) Duration (Minutes) 10 Resistance 4.0 Seat Position 13 Gym Equipment Shuttle Recovery Unilateral Squats Resistance 62 Shuttle Recovery Platform Stable Reps/Time 2 x 10 Bilateral Squats Resistance 100 Shuttle Recovery Platform Stable Reps/Time 3 x 10 Therapeutic Exercises Supine Exercises 5 Supine Exercise Name hip flexor stretch Side bilateral Equipment Used Manual assist for opp KTC Comments Alvaro stretch 4 Supine Exercise Name piriformis stretch Comments w/towel 3 Supine Exercise Name HS stretch Comments c/r 2 Supine Exercise Name heel slide with core tightness Reps/Minutes 10 1 Supine Exercise Name SLR with core tight Reps/Minutes 10 Comments w/pt hands under back to check for facilitaiton. PT-OP-R Modalities Start: 02/16/18 16:14 Freq: Status: Active Protocol: Document 05/08/18 15:55 GGD (Rec: 05/08/18 16:08 GGD [email or web address]) Hot Pack/Cold Pack Treatment Hot Pack Location lumbar Patient Position Prone Treatment Duration (minutes) 10 Cold Pack Location lumbar spine Patient Position Hooklying Treatment Duration (minutes) 10 Patient Tolerance Good Ultrasound Therapy Treatment Right Lower Back Treatment Duration (minutes) 8 Patient Position Prone Frequency Setting (mHz) 1 Duty Cycle 100% Intensity Setting (w/cm2) 1.6 PT-OP-S Aquatic Treatment Start: 02/12/18 16:29 Freq: Status: Active Protocol: Document 04/18/18 14:30 TMS (Rec: 04/18/18 16:21 TMS [email or web address]) Aquatics Treatment Pool Entry/Exit Pool Entry/Exit Method Stairs Assistance Independent Water Walking Forwards Water Level Chest Level Level of Assistance Standby Assistance Lower Extremity Stretches 2 Details Hamstring stretching Body Position Standing Water Level Chest Level Equipment Small Noodle Comments including IT band Spinal Exercises 5 Details [place] position Body Position Supine Water Level [place] Equipment long barbell under ankles, neck float 3 Details Standing on large barbell Body Position Standing Water Level [place] Reps/Duration 10 minutes Comments Traveling forward/backwards, also reverse squats. 1 Details Sitting on 3 kick boards Reps/Duration 5 min. [place] Activities [place] Activities Bicycle Cross [place] Hip Abduction/Adduction Sit Kicks Equipment Belt Comments 30 seconds fast/30 seconds slow, 5 sets each. PT-OP-T Assessment and Plan Start: 02/12/18 16:29 Freq: Status: Active Protocol: Document 05/08/18 15:55 GGD (Rec: 05/08/18 16:08 GGD [email or web address]) Physical Therapy Assessment Assessment Summary Assessment Pt improving with flexibility. He need cues for breathing with core exercises. Physical Therapy Plan Frequency and Duration Frequency of Treatment 2x/Week Duration of Treatment 3 months from 01/24/2018 Plan of Care Start Date 04/20/18 Plan of Care End Date 06/21/18 Therapeutic Interventions Therapeutic Interventions Aquatic Therapy Balance Training Gait Training Home Exercise Program Joint Mobilizations Manual Therapy Soft Tissue Mobilization Taping Therapeutic Exercises Modalities Cold Pack/Ice Massage Electric Stimulation Hot Packs Traction- Mechanical Ultrasound Next Visit Focus/Plan Next Note Type Treatment Note Next Visit Plan Advance core stability
--- NOTE | 2018-05-11 11:24 | PT.OTN ---
Current Diagnoses Spinal stenosis, lumbar region without neurogenic claudication (05/11/18) Lumbago with sciatica, right side (05/11/18) Other abnormalities of gait and mobility (05/11/18) Physical Therapy Treatment Note PT-OP-A Visit Information Start: 02/12/18 16:29 Freq: Status: Active Protocol: Document 05/11/18 10:35 [facility] (Rec: 05/11/18 11:24 [facility] [id number]) Out-Patient Physical Therapy Visit Information Visit Information Visit Type Treatment Note Visit Start Time 10:30 Visit Stop Time 11:15 Total Visit Minutes 58 Visit Number 23 Number of FREIGHT SORTER Visits 0 PT-OP-C Subjective Start: 02/12/18 16:29 Freq: Status: Active Protocol: Document 05/11/18 10:35 [facility] (Rec: 05/11/18 11:24 [facility] [id number]) OP-PT Subjective Patient Comments Patient Comments Pt reports his legs are sore from working out all week. Pt reports he has been doing stretches on his bed. Still most difficult thing is getting in/out of bed. PT-OP-Q Treatments Start: 02/16/18 15:10 Freq: Status: Active Protocol: Document 05/11/18 10:35 [facility] (Rec: 05/11/18 11:24 [facility] [id number]) Cardio Equipment Recumbent Stepper (Sci-Fit) Duration (Minutes) 10 Resistance 4.0 Seat Position 13 Gym Equipment Shuttle Recovery Unilateral Squats Resistance 62 Shuttle Recovery Platform Stable Reps/Time 2 x 10 Bilateral Squats Resistance 125 Shuttle Recovery Platform Stable Reps/Time 3 x 10 Therapeutic Exercises Supine Exercises 6 Supine Exercise Name SKTC Reps/Minutes 30 sec 4 Supine Exercise Name piriformis stretch 2 Supine Exercise Name Knee ext w/core tight Reps/Minutes 10 Neuro Re-Education Treatment Movement Re-Education Movement Re-education Activities Facilitation in PNF patterns for rolling to L; sustained holds and COI with ant depression scapula & ant elevation pelvis PT-OP-R Modalities Start: 02/16/18 16:14 Freq: Status: Active Protocol: Document 05/11/18 10:35 [facility] (Rec: 05/11/18 11:24 [facility] [id number]) Ultrasound Therapy Treatment Right Lower Back Treatment Duration (minutes) 8 Patient Position Prone Frequency Setting (mHz) 1 Duty Cycle 100% Intensity Setting (w/cm2) 1.6 PT-OP-S Aquatic Treatment Start: 02/12/18 16:29 Freq: Status: Active Protocol: Document 04/18/18 14:30 TMS (Rec: 04/18/18 16:21 TMS [email or web address]) Aquatics Treatment Pool Entry/Exit Pool Entry/Exit Method Stairs Assistance Independent Water Walking Forwards Water Level Chest Level Level of Assistance Standby Assistance Lower Extremity Stretches 2 Details Hamstring stretching Body Position Standing Water Level Chest Level Equipment Small Noodle Comments including IT band Spinal Exercises 5 Details [place] position Body Position Supine Water Level [place] Equipment long barbell under ankles, neck float 3 Details Standing on large barbell Body Position Standing Water Level [place] Reps/Duration 10 minutes Comments Traveling forward/backwards, also reverse squats. 1 Details Sitting on 3 kick boards Reps/Duration 5 min. [place] Activities [place] Activities Bicycle Cross [place] Hip Abduction/Adduction Sit Kicks Equipment Belt Comments 30 seconds fast/30 seconds slow, 5 sets each. PT-OP-T Assessment and Plan Start: 02/12/18 16:29 Freq: Status: Active Protocol: Document 05/11/18 10:35 [facility] (Rec: 05/11/18 11:24 [facility] [id number]) Physical Therapy Assessment Goals Six Impairment lacks home program Fruit Thinner Machine Operator Goal (LTG) Independent with HEP, aquatic exercise program LTG Duration 06/21/18-progressing HEP Five Impairment antalgic gait Jail Goal (LTG) Patient able to ambulate without limp LTG Duration 06/21/18 Four Impairment Painful transitional movements Fruit Thinner Machine Operator Goal (LTG) Able to transition sit to stand without an increase in pain LTG Duration 06/21/18-excellent progress minor pain Three Impairment Guarded movement Fruit Thinner Machine Operator Goal (LTG) Patient able to return to pre- injury movement without guarding LTG Duration 06/21/18 Two Impairment decreased activity tolerance Fruit Thinner Machine Operator Goal (LTG) Improve Oswestery disability index score to no greater than 15% LTG Duration 06/21/18 One Impairment pain Jail Goal (LTG) Patient able to return to all prior activities and improve his sleep to pre-injury levels . LTG Duration 06/21/18 Assessment Summary Assessment Pt had significantly improved rolling technique after neuro re edu with PNF patterns. Pt required cueing to maintain netural pelvis w/his elevated heel slide exercise. Physical Therapy Plan Frequency and Duration Frequency of Treatment 2x/Week Duration of Treatment 3 months from 01/24/2018 Plan of Care Start Date 04/20/18 Plan of Care End Date 06/21/18 Next Visit Focus/Plan Next Note Type Treatment Note Next Visit Plan Advance core stability for rolling & in/out of bed.
--- NOTE | 2018-05-14 16:43 | PT.OTN ---
Current Diagnoses Spinal stenosis, lumbar region without neurogenic claudication (05/14/18) Lumbago with sciatica, right side (05/14/18) Other abnormalities of gait and mobility (05/14/18) Physical Therapy Treatment Note PT-OP-A Visit Information Start: 02/12/18 16:29 Freq: Status: Active Protocol: Document 05/14/18 13:45 CLB (Rec: 05/14/18 16:43 CLB [email or web address]) Out-Patient Physical Therapy Visit Information Visit Information Visit Type Treatment Note Visit Start Time 13:45 Visit Stop Time 14:30 Total Visit Minutes 45 Visit Number 24 Number of LOG DECK TENDER Visits 1 PT-OP-C Subjective Start: 02/12/18 16:29 Freq: Status: Active Protocol: Document 05/14/18 13:45 CLB (Rec: 05/14/18 16:43 CLB [email or web address]) OP-PT Subjective Patient Comments Patient Comments Pt reports pain at night that wakes him and needs to stretch . PT-OP-Q Treatments Start: 02/16/18 15:10 Freq: Status: Active Protocol: Document 05/11/18 10:35 LR (Rec: 05/11/18 11:24 LR [id number]) Cardio Equipment Recumbent Stepper (Sci-Fit) Duration (Minutes) 10 Resistance 4.0 Seat Position 13 Gym Equipment Shuttle Recovery Unilateral Squats Resistance 62 Shuttle Recovery Platform Stable Reps/Time 2 x 10 Bilateral Squats Resistance 125 Shuttle Recovery Platform Stable Reps/Time 3 x 10 Therapeutic Exercises Supine Exercises 6 Supine Exercise Name SKTC Reps/Minutes 30 sec 4 Supine Exercise Name piriformis stretch 2 Supine Exercise Name Knee ext w/core tight Reps/Minutes 10 Neuro Re-Education Treatment Movement Re-Education Movement Re-education Activities Facilitation in PNF patterns for rolling to L; sustained holds and COI with ant depression scapula & ant elevation pelvis PT-OP-R Modalities Start: 02/16/18 16:14 Freq: Status: Active Protocol: Document 05/11/18 10:35 LR (Rec: 05/11/18 11:24 [facility] [id number]) Ultrasound Therapy Treatment Right Lower Back Treatment Duration (minutes) 8 Patient Position Prone Frequency Setting (mHz) 1 Duty Cycle 100% Intensity Setting (w/cm2) 1.6 PT-OP-S Aquatic Treatment Start: 02/12/18 16:29 Freq: Status: Active Protocol: Document 05/14/18 13:45 CLB (Rec: 05/14/18 16:43 CLB [email or web address]) Aquatics Treatment Pool Entry/Exit Pool Entry/Exit Method Stairs Assistance Independent Water Walking Sideways Water Level Chest Level Walking Equipment Resistance Fins Level of Assistance Standby Assistance Comments small steps Backwards Water Level Chest Level Walking Equipment Resistance Fins Level of Assistance Standby Assistance Forwards Water Level Chest Level Walking Equipment Resistance Fins Level of Assistance Standby Assistance Lower Extremity Exercises 3 Details L.E. circles Body Position Standing Water Level Chest Level Equipment Resistance Fins 2 Details Hip Flexion/Ext Body Position Standing Water Level Chest Level Equipment Resistance Fins 1 Details Hip Abduction/ADD Body Position Standing Water Level Chest Level Equipment Resistance Fins Comments Small motions Lower Extremity Stretches 2 Details Hamstring stretching Body Position Standing Water Level Chest Level Equipment Small Noodle Comments including IT band 1 Details Knee to chest Body Position Standing Water Level Chest Level Reps/Duration x2 30 second hold [place] Activities [place] Activities Bicycle Cross [place] Running Sit Kicks Equipment belt, small fins Duration 30seconds fast/30 seconds slow 5 sets Comments tethered PT-OP-T Assessment and Plan Start: 02/12/18 16:29 Freq: Status: Active Protocol: Document 05/14/18 13:45 CLB (Rec: 05/14/18 16:43 CLB [email or web address]) Physical Therapy Assessment Goals Six Impairment lacks home program [facility] Goal (LTG) Independent with HEP, aquatic exercise program LTG Duration 06/21/18-progressing HEP Five Impairment antalgic gait Senior Care Provider Goal (LTG) Patient able to ambulate without limp Four Impairment Painful transitional movements [facility] Goal (LTG) Able to transition sit to stand without an increase in pain LTG Duration 06/21/18-excellent progress minor pain Three Senior Care Provider Goal (LTG) Patient able to return to pre- injury movement without guarding LTG Duration 06/21/18 Two Senior Care Provider Goal (LTG) Improve Oswestery disability index score to no greater than 15% LTG Duration 06/21/18 One Impairment pain Senior Care Provider Goal (LTG) Patient able to return to all prior activities and improve his sleep to pre-injury levels . LTG Duration 06/21/18 Assessment Summary Assessment Pt improving tolerance of deep water sets. Physical Therapy Plan Frequency and Duration Frequency of Treatment 2x/Week Duration of Treatment 3 months from 01/24/2018 Plan of Care Start Date 04/20/18 Plan of Care End Date 06/21/18 Next Visit Focus/Plan Next Note Type Treatment Note Next Visit Plan Advance core stability
--- NOTE | 2018-05-17 16:45 | PT.OTN ---
Current Diagnoses Spinal stenosis, lumbar region without neurogenic claudication (05/17/18) Lumbago with sciatica, right side (05/17/18) Other abnormalities of gait and mobility (05/17/18) Physical Therapy Treatment Note PT-OP-A Visit Information Start: 02/12/18 16:29 Freq: Status: Active Protocol: Document 05/17/18 13:53 SAK (Rec: 05/17/18 14:36 SAK [id number]) Out-Patient Physical Therapy Visit Information Visit Information Visit Type Treatment Note Visit Start Time 13:53 Visit Stop Time 14:49 Total Visit Minutes 56 Visit Number 25 Number of COMPENSATION/BENEFITS SPECIALIST Visits 1 PT-OP-C Subjective Start: 02/12/18 16:29 Freq: Status: Active Protocol: Document 05/17/18 13:53 SAK (Rec: 05/17/18 14:36 SAK [id number]) OP-PT Subjective Patient Comments Patient Comments Pain 2/10. Agreeable to discharge from PT after 1 further PT visit. Patient Reported Progress Improving PT-OP-Q Treatments Start: 02/16/18 15:10 Freq: Status: Active Protocol: Document 05/17/18 13:53 SAK (Rec: 05/17/18 14:36 SAK [id number]) Cardio Equipment Recumbent Stepper (Sci-Fit) Duration (Minutes) 10 Resistance 4.5 Seat Position 13 Gym Equipment Shuttle Recovery Unilateral Squats Resistance 62 Shuttle Recovery Platform Stable Reps/Time 2 x 10 Bilateral Squats Resistance 125 Shuttle Recovery Platform Stable Reps/Time 3 x 10 Therapeutic Exercises Supine Exercises 5 Supine Exercise Name hip flexor stretch Side bilateral Equipment Used Manual assist for opp KTC Comments Alvaro stretch 4 Supine Exercise Name piriformis stretch Standing Exercises 1 Standing Exercise Name HS stretch Reps/Minutes 2x Manual Therapy Treatment Soft Tissue Mobilization 1 Body Location bilateral lumbar spine Mobilization Type Rolling Strumming Trigger Point Release Intensity/Depth Moderate Body Position Prone PT-OP-R Modalities Start: 02/16/18 16:14 Freq: Status: Active Protocol: Document 05/17/18 13:53 SAK (Rec: 05/17/18 16:45 SAK [id number]) Hot Pack/Cold Pack Treatment Hot Pack Location lumbar Patient Position Prone Treatment Duration (minutes) 10 Cold Pack Location lumbar spine Patient Position Hooklying Treatment Duration (minutes) 10 Patient Tolerance Good Ultrasound Therapy Treatment Right Lower Back Treatment Duration (minutes) 8 Patient Position Prone Frequency Setting (mHz) 1 Duty Cycle 100% Intensity Setting (w/cm2) 1.6 PT-OP-S Aquatic Treatment Start: 02/12/18 16:29 Freq: Status: Active Protocol: Document 05/14/18 13:45 CLB (Rec: 05/14/18 16:43 CLB [email or web address]) Aquatics Treatment Pool Entry/Exit Pool Entry/Exit Method Stairs Assistance Independent Water Walking Sideways Water Level Chest Level Walking Equipment Resistance Fins Level of Assistance Standby Assistance Comments small steps Backwards Water Level Chest Level Walking Equipment Resistance Fins Level of Assistance Standby Assistance Forwards Water Level Chest Level Walking Equipment Resistance Fins Level of Assistance Standby Assistance Lower Extremity Exercises 3 Details L.E. circles Body Position Standing Water Level Chest Level Equipment Resistance Fins 2 Details Hip Flexion/Ext Body Position Standing Water Level Chest Level Equipment Resistance Fins 1 Details Hip Abduction/ADD Body Position Standing Water Level Chest Level Equipment Resistance Fins Comments Small motions Lower Extremity Stretches 2 Details Hamstring stretching Body Position Standing Water Level Chest Level Equipment Small Noodle Comments including IT band 1 Details Knee to chest Body Position Standing Water Level Chest Level Reps/Duration x2 30 second hold [place] Activities [place] Activities Bicycle [place] Running Sit Kicks Equipment belt, small fins Duration 30seconds fast/30 seconds slow 5 sets Comments tethered PT-OP-T Assessment and Plan Start: 02/12/18 16:29 Freq: Status: Active Protocol: Document 05/17/18 13:53 SAK (Rec: 05/17/18 16:45 SAK [id number]) Physical Therapy Assessment Progress Towards Goals Progress Towards Goals Progressing Toward Goals Assessment Summary Assessment Continues to progress well. Compliant to HEP. Should be ready for discharge following 1 further PT treatment Physical Therapy Plan Frequency and Duration Frequency of Treatment 2x/Week Duration of Treatment 2 months Plan of Care Start Date 04/20/18 Plan of Care End Date 06/21/18 Therapeutic Interventions Therapeutic Interventions Aquatic Therapy Balance Training Gait Training Home Exercise Program Joint Mobilizations Manual Therapy Soft Tissue Mobilization Taping Therapeutic Exercises Modalities Cold Pack/Ice Massage Electric Stimulation Hot Packs Traction- Mechanical Ultrasound Next Visit Focus/Plan Next Note Type Treatment Note Next Visit Plan Review aquatic exercise program, transition to independent HEP and aquatic exercise program.
--- NOTE | 2018-05-22 17:03 | PT.OTN ---
Current Diagnoses Spinal stenosis, lumbar region without neurogenic claudication (05/22/18) Lumbago with sciatica, right side (05/22/18) Other abnormalities of gait and mobility (05/22/18) Physical Therapy Treatment Note PT-OP-A Visit Information Start: 02/12/18 16:29 Freq: Status: Active Protocol: Document 05/22/18 16:10 GGD (Rec: 05/22/18 17:03 GGD [email or web address]) Out-Patient Physical Therapy Visit Information Visit Information Visit Type Treatment Note Visit Start Time 15:15 Visit Stop Time 14:10 Total Visit Minutes 55 Visit Number 26 Number of OYSTER WORKER Visits 1 PT-OP-C Subjective Start: 02/12/18 16:29 Freq: Status: Active Protocol: Document 05/22/18 16:10 GGD (Rec: 05/22/18 17:03 GGD [email or web address]) OP-PT Subjective Patient Comments Patient Comments Pt states he is able to increase walking distance at [facility] without increase in pain. PT-OP-Q Treatments Start: 02/16/18 15:10 Freq: Status: Active Protocol: Document 05/22/18 16:10 GGD (Rec: 05/22/18 17:03 GGD [email or web address]) Cardio Equipment Recumbent Stepper (Sci-Fit) Duration (Minutes) 10 Resistance 4.5 Seat Position 13 Gym Equipment Shuttle Recovery Unilateral Squats Resistance 62 Shuttle Recovery Platform Stable Reps/Time 2 x 10 Bilateral Squats Resistance 125 Shuttle Recovery Platform Stable Reps/Time 3 x 10 Therapeutic Exercises Supine Exercises 5 Supine Exercise Name hip flexor stretch Side bilateral Comments Alvaro stretch 4 Supine Exercise Name piriformis stretch Standing Exercises 1 Standing Exercise Name HS stretch Reps/Minutes 2x Comments step Manual Therapy Treatment Soft Tissue Mobilization 1 Body Location bilateral lumbar spine Mobilization Type Rolling Strumming Trigger Point Release Intensity/Depth Moderate Body Position Prone PT-OP-R Modalities Start: 02/16/18 16:14 Freq: Status: Active Protocol: Document 05/22/18 16:10 GGD (Rec: 05/22/18 17:03 GGD [email or web address]) Hot Pack/Cold Pack Treatment Hot Pack Location lumbar Patient Position Prone Treatment Duration (minutes) 10 Cold Pack Location lumbar spine Patient Position Hooklying Treatment Duration (minutes) 10 Patient Tolerance Good Ultrasound Therapy Treatment Right Lower Back Treatment Duration (minutes) 8 Patient Position Prone Frequency Setting (mHz) 1 Duty Cycle 100% Intensity Setting (w/cm2) 1.6 PT-OP-S Aquatic Treatment Start: 02/12/18 16:29 Freq: Status: Active Protocol: Document 05/14/18 13:45 CLB (Rec: 05/14/18 16:43 CLB [email or web address]) Aquatics Treatment Pool Entry/Exit Pool Entry/Exit Method Stairs Assistance Independent Water Walking Sideways Water Level Chest Level Walking Equipment Resistance Fins Level of Assistance Standby Assistance Comments small steps Backwards Water Level Chest Level Walking Equipment Resistance Fins Level of Assistance Standby Assistance Forwards Water Level Chest Level Walking Equipment Resistance Fins Level of Assistance Standby Assistance Lower Extremity Exercises 3 Details L.E. circles Body Position Standing Water Level Chest Level Equipment Resistance Fins 2 Details Hip Flexion/Ext Body Position Standing Water Level Chest Level Equipment Resistance Fins 1 Details Hip Abduction/ADD Body Position Standing Water Level Chest Level Equipment Resistance Fins Comments Small motions Lower Extremity Stretches 2 Details Hamstring stretching Body Position Standing Water Level Chest Level Equipment Small Noodle Comments including IT band 1 Details Knee to chest Body Position Standing Water Level Chest Level Reps/Duration x2 30 second hold [place] Activities [place] Activities Bicycle Cross Country Running Sit Kicks Equipment belt, small fins Duration 30seconds fast/30 seconds slow 5 sets Comments tethered PT-OP-T Assessment and Plan Start: 02/12/18 16:29 Freq: Status: Active Protocol: Document 05/22/18 16:10 GGD (Rec: 05/22/18 17:03 GGD [email or web address]) Physical Therapy Assessment Assessment Summary Assessment Pt need cues for exersice techinque. He is improving tolerance to activities. He ready for D/C in next few visits. Physical Therapy Plan Frequency and Duration Frequency of Treatment 2x/Week Duration of Treatment 2 months Plan of Care Start Date 04/20/18 Plan of Care End Date 06/21/18 Therapeutic Interventions Therapeutic Interventions Aquatic Therapy Balance Training Gait Training Home Exercise Program Joint Mobilizations Manual Therapy Soft Tissue Mobilization Taping Therapeutic Exercises Modalities Cold Pack/Ice Massage Electric Stimulation Hot Packs Traction- Mechanical Ultrasound Next Visit Focus/Plan Next Note Type Treatment Note Next Visit Plan Transition to independent HEP and aquatic exercise program.
--- NOTE | 2018-05-25 14:30 | PT.OTN ---
Current Diagnoses Spinal stenosis, lumbar region without neurogenic claudication (05/25/18) Lumbago with sciatica, right side (05/25/18) Other abnormalities of gait and mobility (05/25/18) Physical Therapy Treatment Note PT-OP-A Visit Information Start: 02/12/18 16:29 Freq: Status: Active Protocol: Document 05/25/18 13:48 LR (Rec: 05/25/18 14:30 [facility] [id number]) Out-Patient Physical Therapy Visit Information Visit Information Visit Type Treatment Note Visit Start Time 13:45 Visit Stop Time 14:45 Total Visit Minutes 60 Visit Number 27 Number of SUBSTATION OPERATOR HELPER Visits 1 PT-OP-C Subjective Start: 02/12/18 16:29 Freq: Status: Active Protocol: Document 05/25/18 13:48 LR (Rec: 05/25/18 14:30 [facility] [id number]) OP-PT Subjective Patient Comments Patient Comments Pt is feeling good with progression of PT. Back is doing better. PT-OP-Q Treatments Start: 02/16/18 15:10 Freq: Status: Active Protocol: Document 05/25/18 13:48 LR (Rec: 05/25/18 14:30 [facility] [id number]) Cardio Equipment Recumbent Stepper (Sci-Fit) Duration (Minutes) 10 Resistance 4.5 Seat Position 13 Gym Equipment Shuttle Recovery Unilateral Squats Resistance 87# Shuttle Recovery Platform Stable Reps/Time 2 x 10 Bilateral Squats Resistance 162 Shuttle Recovery Platform Stable Reps/Time 3 x 10 Therapeutic Exercises Supine Exercises 4 Supine Exercise Name piriformis stretch 3 Supine Exercise Name SLR w/ HS stretch hold at end Reps/Minutes 10 2 Supine Exercise Name Knee ext w/core tight Reps/Minutes 10 Manual Therapy Treatment Soft Tissue Mobilization 1 Body Location bilateral lumbar spine Mobilization Type Rolling Strumming Trigger Point Release Intensity/Depth Moderate Body Position Prone PT-OP-R Modalities Start: 02/16/18 16:14 Freq: Status: Active Protocol: Document 05/25/18 13:48 LR (Rec: 05/25/18 14:30 [facility] [id number]) Hot Pack/Cold Pack Treatment Hot Pack Location lumbar Patient Position Prone Treatment Duration (minutes) 15 Ultrasound Therapy Treatment Right Lower Back Treatment Duration (minutes) 8 Patient Position Prone Frequency Setting (mHz) 1 Duty Cycle 100% Intensity Setting (w/cm2) 1.6 PT-OP-S Aquatic Treatment Start: 02/12/18 16:29 Freq: Status: Active Protocol: Document 05/14/18 13:45 CLB (Rec: 05/14/18 16:43 CLB [email or web address]) Aquatics Treatment Pool Entry/Exit Pool Entry/Exit Method Stairs Assistance Independent Water Walking Sideways Water Level Chest Level Walking Equipment Resistance Fins Level of Assistance Standby Assistance Comments small steps Backwards Water Level Chest Level Walking Equipment Resistance Fins Level of Assistance Standby Assistance Forwards Water Level Chest Level Walking Equipment Resistance Fins Level of Assistance Standby Assistance Lower Extremity Exercises 3 Details L.E. circles Body Position Standing Water Level Chest Level Equipment Resistance Fins 2 Details Hip Flexion/Ext Body Position Standing Water Level Chest Level Equipment Resistance Fins 1 Details Hip Abduction/ADD Body Position Standing Water Level Chest Level Equipment Resistance Fins Comments Small motions Lower Extremity Stretches 2 Details Hamstring stretching Body Position Standing Water Level Chest Level Equipment Small Noodle Comments including IT band 1 Details Knee to chest Body Position Standing Water Level Chest Level Reps/Duration x2 30 second hold [place] Activities Hood Activities Bicycle Cross Country Running Sit Kicks Equipment belt, small fins Duration 30seconds fast/30 seconds slow 5 sets Comments tethered PT-OP-T Assessment and Plan Start: 02/12/18 16:29 Freq: Status: Active Protocol: Document 05/25/18 13:48 [facility] (Rec: 05/25/18 14:30 [facility] [id number]) Physical Therapy Assessment Goals Six Impairment lacks home program Assisted Goal (LTG) Independent with HEP, aquatic exercise program LTG Duration 06/21/18-progressing HEP Five Impairment antalgic gait Self Propelled Dredge Operator Goal (LTG) Patient able to ambulate without limp Four Impairment Painful transitional movements Self Propelled Dredge Operator Goal (LTG) Able to transition sit to stand without an increase in pain LTG Duration 06/21/18-excellent progress minor pain Three Assisted Goal (LTG) Patient able to return to pre- injury movement without guarding LTG Duration 06/21/18 Two Self Propelled Dredge Operator Goal (LTG) Improve Oswestery disability index score to no greater than 15% LTG Duration 06/21/18 One Impairment pain Self Propelled Dredge Operator Goal (LTG) Patient able to return to all prior activities and improve his sleep to pre-injury levels . LTG Duration 06/21/18 Assessment Summary Assessment Pt had significantly improved technique with exercises with dec instability of pelvis with core exercises. Physical Therapy Plan Frequency and Duration Frequency of Treatment 2x/Week Duration of Treatment 2 months Plan of Care Start Date 04/20/18 Plan of Care End Date 06/21/18 Next Visit Focus/Plan Next Note Type Treatment Note Next Visit Plan Transition to independent HEP and aquatic exercise program.
--- NOTE | 2018-05-28 15:38 | PT.OTN ---
Current Diagnoses Spinal stenosis, lumbar region without neurogenic claudication (05/28/18) Lumbago with sciatica, right side (05/28/18) Other abnormalities of gait and mobility (05/28/18) Physical Therapy Treatment Note PT-OP-A Visit Information Start: 02/12/18 16:29 Freq: Status: Active Protocol: Document 05/28/18 11:30 CLB (Rec: 05/28/18 15:38 CLB [email or web address]) Out-Patient Physical Therapy Visit Information Visit Information Visit Start Time 11:30 Visit Stop Time 12:15 Total Visit Minutes 45 Visit Number 28 Number of SHANK SCOURER Visits 1 PT-OP-C Subjective Start: 02/12/18 16:29 Freq: Status: Active Protocol: Document 05/28/18 11:30 CLB (Rec: 05/28/18 15:38 CLB [email or web address]) OP-PT Subjective Patient Comments Patient Comments Pt stated he is feeling better . He has increased his distance while walking outside . Pt has slept in his bed the last three nights all night with head of bed slightly elevated and pillow under knees while on back and one for between legs while sidelying. Pt also stated he feels that he is having trouble advancing his legs during ambulation and having to think about walking instead of it being automatic. Left side greater than right side. PT-OP-Q Treatments Start: 02/16/18 15:10 Freq: Status: Active Protocol: Document 05/25/18 13:48 LR (Rec: 05/25/18 14:30 [facility] [id number]) Cardio Equipment Recumbent Stepper (Sci-Fit) Duration (Minutes) 10 Resistance 4.5 Seat Position 13 Gym Equipment Shuttle Recovery Unilateral Squats Resistance 87# Shuttle Recovery Platform Stable Reps/Time 2 x 10 Bilateral Squats Resistance 162 Shuttle Recovery Platform Stable Reps/Time 3 x 10 Therapeutic Exercises Supine Exercises 4 Supine Exercise Name piriformis stretch 3 Supine Exercise Name SLR w/ HS stretch hold at end Reps/Minutes 10 2 Supine Exercise Name Knee ext w/core tight Reps/Minutes 10 Manual Therapy Treatment Soft Tissue Mobilization 1 Body Location bilateral lumbar spine Mobilization Type Rolling Strumming Trigger Point Release Intensity/Depth Moderate Body Position Prone PT-OP-R Modalities Start: 02/16/18 16:14 Freq: Status: Active Protocol: Document 05/25/18 13:48 [facility] (Rec: 05/25/18 14:30 [facility] [id number]) Hot Pack/Cold Pack Treatment Hot Pack Location lumbar Patient Position Prone Treatment Duration (minutes) 15 Ultrasound Therapy Treatment Right Lower Back Treatment Duration (minutes) 8 Patient Position Prone Frequency Setting (mHz) 1 Duty Cycle 100% Intensity Setting (w/cm2) 1.6 PT-OP-S Aquatic Treatment Start: 02/12/18 16:29 Freq: Status: Active Protocol: Document 05/28/18 11:30 CLB (Rec: 05/28/18 15:38 CLB [email or web address]) Aquatics Treatment Water Walking Sideways Water Level Chest Level Walking Equipment Resistance Fins Level of Assistance Standby Assistance Forwards Water Level Chest Level Walking Equipment Resistance Fins Level of Assistance Standby Assistance Comments high knees and lunges Lower Extremity Stretches 2 Details Hamstring stretching Body Position Standing Water Level Chest Level Equipment Small Noodle Comments including IT band 1 Details Knee to chest Body Position Standing Water Level Chest Level Reps/Duration x2 30 second hold [place] Activities [place] Activities Bicycle Cross [place] Running Sit Kicks Equipment belt, small fins Duration 30seconds fast/30 seconds slow 5 sets Comments tethered PT-OP-T Assessment and Plan Start: 02/12/18 16:29 Freq: Status: Active Protocol: Document 05/28/18 11:30 CLB (Rec: 05/28/18 15:38 CLB [email or web address]) Physical Therapy Assessment Goals Six Impairment lacks home program Reservationist Goal (LTG) Independent with HEP, aquatic exercise program Five Impairment antalgic gait Mcc Goal (LTG) Patient able to ambulate without limp Four Impairment Painful transitional movements Mcc Goal (LTG) Able to transition sit to stand without an increase in pain LTG Duration 06/21/18-excellent progress minor pain Three Mcc Goal (LTG) Patient able to return to pre- injury movement without guarding Two Reservationist Goal (LTG) Improve Oswestery disability index score to no greater than 15% One Impairment pain Reservationist Goal (LTG) Patient able to return to all prior activities and improve his sleep to pre-injury levels . LTG Duration 06/21/18 Progress Towards Goals Progress Towards Goals Progressing Toward Goals Assessment Summary Assessment Pt needed minor cues for posture while performing deep water activities and continues to improve with tolerance of deep water ther ex. Physical Therapy Plan Frequency and Duration Frequency of Treatment 2x/Week Duration of Treatment 2 months Plan of Care Start Date 04/20/18 Plan of Care End Date 06/21/18 Next Visit Focus/Plan Next Note Type Treatment Note Next Visit Plan Assess gait as pt states he is having difficulty advancing LEs during land ambulation.
--- NOTE | 2018-05-31 16:06 | PT.OTN ---
Current Diagnoses Spinal stenosis, lumbar region without neurogenic claudication (05/31/18) Lumbago with sciatica, right side (05/31/18) Other abnormalities of gait and mobility (05/31/18) Physical Therapy Treatment Note PT-OP-A Visit Information Start: 02/12/18 16:29 Freq: Status: Active Protocol: Document 05/31/18 15:17 SAK (Rec: 05/31/18 16:05 SAK [id number]) Out-Patient Physical Therapy Visit Information Visit Information Visit Start Time 15:15 Visit Stop Time 16:15 Total Visit Minutes 60 Visit Number 29 Number of DIVISION TRAFFIC SUPERINTENDENT Visits 0 PT-OP-C Subjective Start: 02/12/18 16:29 Freq: Status: Active Protocol: Document 05/31/18 15:17 SAK (Rec: 05/31/18 16:05 SAK [id number]) OP-PT Subjective Patient Comments Patient Comments Pain 2/10, feels stable. Paying attention to body mechanics. PT-OP-Q Treatments Start: 02/16/18 15:10 Freq: Status: Active Protocol: Document 05/31/18 15:17 SAK (Rec: 05/31/18 16:05 SAK [id number]) Cardio Equipment Recumbent Stepper (Sci-Fit) Duration (Minutes) 10 Resistance 4.5 Seat Position 13 Therapeutic Exercises Supine Exercises 7 Supine Exercise Name doorway hamstring stretch 5 Supine Exercise Name hip flexor stretch Side bilateral Comments Alvaro stretch 4 Supine Exercise Name piriformis stretch 3 Supine Exercise Name SLR w/ HS stretch hold at end Reps/Minutes 10 Manual Therapy Treatment Soft Tissue Mobilization 1 Body Location bilateral lumbar spine Mobilization Type Rolling Strumming Trigger Point Release Intensity/Depth Moderate Body Position Prone PT-OP-R Modalities Start: 02/16/18 16:14 Freq: Status: Active Protocol: Document 05/31/18 15:17 SAK (Rec: 05/31/18 16:05 SAK [id number]) Hot Pack/Cold Pack Treatment Hot Pack Location lumbar Patient Position Prone Treatment Duration (minutes) 15 Ultrasound Therapy Treatment Right Lower Back Treatment Duration (minutes) 8 Patient Position Prone Frequency Setting (mHz) 1 Duty Cycle 100% Intensity Setting (w/cm2) 1.6 PT-OP-S Aquatic Treatment Start: 02/12/18 16:29 Freq: Status: Active Protocol: Document 05/28/18 11:30 CLB (Rec: 05/28/18 15:38 CLB [email or web address]) Aquatics Treatment Water Walking Sideways Water Level Chest Level Walking Equipment Resistance Fins Level of Assistance Standby Assistance Forwards Water Level Chest Level Walking Equipment Resistance Fins Level of Assistance Standby Assistance Comments high knees and lunges Lower Extremity Stretches 2 Details Hamstring stretching Body Position Standing Water Level Chest Level Equipment Small Noodle Comments including IT band 1 Details Knee to chest Body Position Standing Water Level Chest Level Reps/Duration x2 30 second hold [place] Activities [place] Activities Bicycle Cross [place] Running Sit Kicks Equipment belt, small fins Duration 30seconds fast/30 seconds slow 5 sets Comments tethered PT-OP-T Assessment and Plan Start: 02/12/18 16:29 Freq: Status: Active Protocol: Document 05/31/18 15:17 [email or web address] (Rec: 05/31/18 16:05 SAK [id number]) Physical Therapy Assessment Goals Six Impairment lacks home program Petroleum Terminal Plant Operator Goal (LTG) Independent with HEP, aquatic exercise program Five Impairment antalgic gait Group Home Goal (LTG) Patient able to ambulate without limp Four Impairment Painful transitional movements Petroleum Terminal Plant Operator Goal (LTG) Able to transition sit to stand without an increase in pain LTG Duration 06/21/18-excellent progress minor pain Three Petroleum Terminal Plant Operator Goal (LTG) Patient able to return to pre- injury movement without guarding Two Group Home Goal (LTG) Improve Oswestery disability index score to no greater than 15% One Impairment pain Group Home Goal (LTG) Patient able to return to all prior activities and improve his sleep to pre-injury levels . LTG Duration 06/21/18 Progress Towards Goals Progress Towards Goals Progressing Toward Goals Assessment Summary Assessment Patient demonstrated good understanding of doorway hamstring stretch; PSLR left 85, right 75. Continues to progress with ther ex, decreasing pain, and increasing activity tolerance. Physical Therapy Plan Frequency and Duration Frequency of Treatment 2x/Week Duration of Treatment 2 months Plan of Care Start Date 04/20/18 Plan of Care End Date 06/21/18 Next Visit Focus/Plan Next Note Type Treatment Note Next Visit Plan Further work on rhythmic LE movcement for gait.
--- NOTE | 2018-06-06 17:25 | PT.OTN ---
Current Diagnoses Spinal stenosis, lumbar region without neurogenic claudication (06/06/18) Lumbago with sciatica, right side (06/06/18) Other abnormalities of gait and mobility (06/06/18) Physical Therapy Treatment Note PT-OP-A Visit Information Start: 02/12/18 16:29 Freq: Status: Active Protocol: Document 05/31/18 15:17 SAK (Rec: 05/31/18 16:05 SAK [id number]) Out-Patient Physical Therapy Visit Information Visit Information Visit Start Time 15:15 Visit Stop Time 16:15 Total Visit Minutes 60 Visit Number 29 Number of MOPHEAD TRIMMER AND WRAPPER Visits 0 PT-OP-C Subjective Start: 02/12/18 16:29 Freq: Status: Active Protocol: Document 06/06/18 15:19 SAK (Rec: 06/06/18 15:29 SAK [id number]) OP-PT Subjective Patient Comments Patient Comments Pain 2/10, stable, ready for discharge. Patient Questionnaires Oswestry Low Back Index Oswestry Score 45 Oswestry Impairment 40 to 59% Impaired (Score 40- 59) OP-PT Pain Assessment Pain Assessment Grid Paper Pain Assessment Grid Completed Yes Location Right Lower Back Intensity 2 PT-OP-Q Treatments Start: 02/16/18 15:10 Freq: Status: Active Protocol: Document 06/06/18 15:19 SAK (Rec: 06/06/18 15:29 SAK [id number]) Cardio Equipment Recumbent Stepper (Sci-Fit) Duration (Minutes) 10 Resistance 4.5 Seat Position 13 Therapeutic Exercises Supine Exercises 3 Supine Exercise Name SLR w/ HS stretch hold at end Reps/Minutes 10 Prone Exercises 1 Prone Exercise Name hip ext Comments gentle Standing Exercises 1 Standing Exercise Name HS and HC stretch Reps/Minutes 2x Comments neutral and with IR Manual Therapy Treatment Soft Tissue Mobilization 1 Body Location bilateral lumbar spine Mobilization Type Rolling Strumming Trigger Point Release Intensity/Depth Moderate Body Position Prone PT-OP-R Modalities Start: 02/16/18 16:14 Freq: Status: Active Protocol: Document 06/06/18 17:21 SAK (Rec: 06/06/18 17:24 SAK [id number]) Hot Pack/Cold Pack Treatment Hot Pack Comments refused today Ultrasound Therapy Treatment Right Lower Back Treatment Duration (minutes) 8 Patient Position Prone Frequency Setting (mHz) 1 Duty Cycle 100% Intensity Setting (w/cm2) 1.6 PT-OP-S Aquatic Treatment Start: 02/12/18 16:29 Freq: Status: Active Protocol: Document 05/28/18 11:30 CLB (Rec: 05/28/18 15:38 CLB [email or web address]) Aquatics Treatment Water Walking Sideways Water Level Chest Level Walking Equipment Resistance Fins Level of Assistance Standby Assistance Forwards Water Level Chest Level Walking Equipment Resistance Fins Level of Assistance Standby Assistance Comments high knees and lunges Lower Extremity Stretches 2 Details Hamstring stretching Body Position Standing Water Level Chest Level Equipment Small Noodle Comments including IT band 1 Details Knee to chest Body Position Standing Water Level Chest Level Reps/Duration x2 30 second hold [place] Activities [place] Activities Bicycle [place] Running Sit Kicks Equipment belt, small fins Duration 30seconds fast/30 seconds slow 5 sets Comments tethered PT-OP-T Assessment and Plan Start: 02/12/18 16:29 Freq: Status: Active Protocol: Document 06/06/18 17:21 SAK (Rec: 06/06/18 17:24 SAK [id number]) Physical Therapy Assessment Goals Six Impairment lacks home program Alf Goal (LTG) Independent with HEP, aquatic exercise program (goal achieved) Five Impairment antalgic gait Accounts Receivable Administrator Goal (LTG) Patient able to ambulate without limp (goal achieved) Four Impairment Painful transitional movements Alf Goal (LTG) Able to transition sit to stand without an increase in pain (goal achieved LTG Duration 06/21/18-excellent progress minor pain Three Accounts Receivable Administrator Goal (LTG) Patient able to return to pre- injury movement without guarding (goal mostly achieved ) Two Alf Goal (LTG) Improve Oswestery disability index score to no greater than 15% (some goal progress) One Impairment pain Accounts Receivable Administrator Goal (LTG) Patient able to return to all prior activities and improve his sleep to pre-injury levels . (goal achieved) LTG Duration 06/21/18 Progress Towards Goals Progress Towards Goals Progressing Toward Goals Assessment Summary Assessment Patient made excellent improvement in decreasing his pain from 9/10 to 2/10. Goals were mostly achieved. He is independent in a HEP and aquatic ex program for long- term pain managment and fitness. He is ready for discharge from PT Physical Therapy Plan Discharge Physical Therapy Discharge Reasons [place] in Progress Discharge Comments indep in self-management
--- NOTE | 2018-06-06 17:25 | PT.OPDS ---
Current Diagnoses Spinal stenosis, lumbar region without neurogenic claudication (06/06/18) Lumbago with sciatica, right side (06/06/18) Other abnormalities of gait and mobility (06/06/18) Provider Visit Care Team Role Provider Type Oskar Posey MD Family Provider Physician Primary Care Provider Specialty: Internal Medicine Address: [address] [place] [address] Email: Jay Pierson MD Attending Provider Physician Specialty: Internal Medicine Address: [address] [place] [address], [facility] Email: Visit Number Visit Number 29 Discharge Summary PT-OP-C Subjective Start: 02/12/18 16:29 Freq: Status: Active Protocol: Document 06/06/18 15:19 [facility] (Rec: 06/06/18 15:29 [facility] [id number]) OP-PT Subjective Patient Comments Patient Comments Pain 2/10, stable, ready for discharge. Patient Questionnaires Oswestry Low Back Index Oswestry Score 45 Oswestry Impairment 40 to 59% Impaired (Score 40- 59) OP-PT Pain Assessment Pain Assessment Grid Paper Pain Assessment Grid Completed Yes Location Right Lower Back Intensity 2 PT-OP-T Assessment and Plan Start: 02/12/18 16:29 Freq: Status: Active Protocol: Document 06/06/18 17:21 [facility] (Rec: 06/06/18 17:24 [facility] [id number]) Physical Therapy Assessment Goals Six Impairment lacks home program Cat Scanner Operator Goal (LTG) Independent with HEP, aquatic exercise program (goal achieved) Five Impairment antalgic gait Fdc Goal (LTG) Patient able to ambulate without limp (goal achieved) Four Impairment Painful transitional movements Fdc Goal (LTG) Able to transition sit to stand without an increase in pain (goal achieved LTG Duration 06/21/18-excellent progress minor pain Three Cat Scanner Operator Goal (LTG) Patient able to return to pre- injury movement without guarding (goal mostly achieved ) Two Cat Scanner Operator Goal (LTG) Improve Oswestery disability index score to no greater than 15% (some goal progress) One Impairment pain Fdc Goal (LTG) Patient able to return to all prior activities and improve his sleep to pre-injury levels . (goal achieved) LTG Duration 06/21/18 Progress Towards Goals Progress Towards Goals Progressing Toward Goals Assessment Summary Assessment Patient made excellent improvement in decreasing his pain from 06/18 to 2. Goals were mostly achieved. He is independent in a HEP and aquatic ex program for long- term pain managment and fitness. He is ready for discharge from PT Physical Therapy Plan Discharge Physical Therapy Discharge Reasons Plateau in Progress Discharge Comments indep in self-management
== END 2018-06-08 10:26 ==
LOC: PHYS 15:15
PROVIDERS: Family Provider Internal Medicine; PCP Internal Medicine; Visit Provider Internal Medicine
DX: M48.061 Spinal stenosis, lumbar region without neurogenic claudication (principal); R26.89 Other abnormalities of gait and mobility; M54.41 Lumbago with sciatica, right side
CPT/HCPCS: 97010; 97012; 97035; 97110; 97112; 97113; 97116; 97140

== ENCOUNTER → 2018-06-07 07:55 | Outpatient (CLI) | payer MEDICARE, SELFPAY ==
[2018-06-07 08:56] LABS: Add Manual Diff / Slide Review NO; Basophils Percent Auto 0.8 % (0-2); Eosinophils Percent Auto 4.1 % (2-4); Hematocrit 43.5 % (41-53); Hemoglobin 15.3 g/dL (13.5-17.5); Lymphocytes Percent Auto 26.4 % (25-40); Mean Corpuscular HGB Conc 35.3 % (30-36); Mean Corpuscular Volume 90.8 fL (80-100); Monocytes Percent Auto 9.4 % (3-14); Neutrophils Absolute Auto 4200 /uL (3000-5900); Neutrophils Percent Auto 59.3 % (50-75); Platelet Count 218 X10^3/uL (150-400); Red Blood Cell Count 4.79 X10^6/uL (4.5-5.9); White Blood Cell Count 7.1 X10^3/uL (4.5-11.0)
[2018-06-07 09:24] LABS: Hemoglobin A1C% w Est Avg Glu 5.3 % (4.0-6.0)
[2018-06-07 10:08] LABS: Alanine Aminotransferase 46 IU/L (21-72); Albumin 4.2 g/dL (3.5-5.0); Albumin Globulin Ratio 1.6 (1.0-2.8); Alkaline Phosphatase 51 U/L (38-126); Aspartate Aminotransferase 51 IU/L (17-59); BUN Creatinine Ratio 11.8 (6-22); Bilirubin Total 0.7 mg/dL (0.2-1.3); Blood Urea Nitrogen 13 mg/dL (9-20); Calcium 9.1 mg/dL (8.4-10.2); Carbon Dioxide 29 mmol/L (22-32); Chloride 103 mmol/L (98-107); Cholesterol 127 mg/dL (140-199); Estimated Glomerular Filt Rate > 60.0 mL/min (>60); Globulin 2.6 g/dL (1.7-4.1); Glucose 96 mg/dL (70-100); HDL Cholesterol 23 mg/dL (40-60); HEMOLYSIS < 15 (0-50); LDL Cholesterol Calculated 52 mg/dL (<100); Sodium 143 mmol/L (137-145); Total Protein 6.8 g/dL (6.3-8.2); Triglycerides 262 mg/dL (35-150)
== END ==
PROVIDERS: PCP Physician Assistant; Visit Provider Physician Assistant
DX: I10 Essential (primary) hypertension (principal); E78.2 Mixed hyperlipidemia; E29.1 Testicular hypofunction; N52.1 Erectile dysfunction due to diseases classified elsewhere; R73.09 Other abnormal glucose
CPT/HCPCS: 36415; 80053; 80061; 83036; 84403; 85025

== ENCOUNTER 2019-08-13 15:26 | Emergency (ER) | payer MEDICARE, SELFPAY ==
[2019-08-13 15:35] VITALS: BP 150/105; PULSE 74; RESP 15; TEMP 36.4; O2SAT 96; BMI 43.4
--- NOTE | 2019-08-13 15:40 | ED.WOUNDLAC ---
HPI - Wound/Laceration General Chief Complaint: Wound/Laceration Stated Complaint: RIGHT HAND MIDDLE FINGER LACERATION Time Seen by Provider: 08/13/19 15:40 Source: patient Mode of arrival: Ambulatory Limitations: no limitations History of Present Illness HPI narrative: This is a 58-year-old male comes emergency department with complaint of middle finger injury to his right hand. Patient states on Monday he was removing a metal cover on his furnace which has a jagged curved edge and it slipped slicing his finger. Patient states that he washed it and bandaged it but when he pulled off the pain it started bleeding again he replaced it but continued to have some oozing. He noticed that the laceration was little bit deeper and more jacket then he realized. Patient believes his tetanus is no longer up to date. He does have decreased sensation on the distal tip. 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 He states he takes medication for blood pressure, he has a history of tremor. He states he is prediabetic. He states he is allergic to penicillin, states that he gets a rash. and that he is allergic to Imitrex. He has had some orthopedic surgeries including cervical repair. Related Data Home Medications Medication Instructions Recorded Confirmed hydrocodone 7.5 mg-acetaminophen 1 tab PO TID tab 01/22/19 08/13/19 325 mg tablet propranolol 160 mg capsule,24 160 mg PO DAILY 01/22/19 08/13/19 hr,extended release lisinopril-hydrochlorothiazide 1 tab PO DAILY 08/13/19 08/13/19 tamsulosin 0.8 mg PO DAILY 08/13/19 Previous Rx's Medication Instructions Recorded doxycycline hyclate 100 mg PO BID #14 tab 08/13/19 Allergies Allergy/AdvReac Type Severity Reaction Status Date / Time Penicillins [PENICILLINS] Allergy Unknown Verified 08/13/19 15:34 sumatriptan [From Imitrex] Allergy Verified 08/13/19 15:34 Review of Systems Review of Systems ROS Unobtainable: All systems reviewed & are unremarkable except as noted in HPI and below Patient History Social History Smoking Status: Former smoker alcohol intake frequency: holidays/special occasions only Substance Use Type: does not use Exam Narrative Exam Narrative: GENERAL: Alert and oriented x three, obese, well-appearing male in mild distress. HEENT: Head normocephalic, atraumatic, EOMI, pupils reactive, face symmetric, moist mucous membranes NECK: Supple, full range of motion CARDIOVASCULAR: Regular rate and rhythm without murmurs, rubs or gallops. RESPIRATORY: Breath sounds equal bilaterally, no wheezes rales or rhonchi. ABDOMEN: Soft, nontender. Normoactive bowel sounds all 4 quadrants. No guarding or rebound, rigidity, no mass EXTREMITIES: Normal range of motion, no clubbing. Patient has laceration of the pad of his right 3rd finger. It is extending across the pad up towards the radial side towards the ulnar side and then crosses through the very edge of the nail. The nail is well aligned. Patient has decreased sensation on the very distal tip of the finger. He does have sensation throughout the rest of the finger. He has cap refill less than 2 seconds. He appears to have good range of motion and muscle strength with flexion-extension. He has 2+ radial pulse. There is no erythema or drainage. There is a small amount of blood oozing. NEUROLOGICAL: Cranial nerves II through XII grossly intact. Moving all extremities SKIN: Warm, dry, no petechiae, no rashes or lesions. Initial Vital Signs Initial Vital Signs: Vital Signs Temperature 97.6 F 08/13/19 15:35 Pulse Rate 74 08/13/19 15:35 Respiratory Rate 15 08/13/19 15:35 Blood Pressure 150/105 H 08/13/19 15:35 Pulse Oximetry 96 08/13/19 15:35 Course Orders Ordered: ED Orders 08/13/19 15:50 XR finger RT min 2V Stat Discontinued Medications Diphtheria/Tetanus/Acell Pertussis (Adacel) 0.5 ml IM .ONCE ONE Stop: 08/13/19 15:41 Last Admin: 08/13/19 16:01 Dose: 0.5 ml Documented by: FAY Vital Signs Vital signs: Vital Signs - 8 hr 08/13/19 15:35 08/13/19 16:52 Temperature 97.6 F Pulse Rate 74 68 Respiratory Rate 15 14 Blood Pressure 150/105 H 133/88 Pulse Oximetry 96 MDM - Wound/Laceration Imaging Data finger xray: Radiologist's impression: [address] [address] XRay Report Signed Patient: Killian Dhaliwal [facility]#: [id number] : 1Acct:[id number] Age/Sex: 58 / MDate of Service: 08/13/19 Loc: ED Accession Number: [id number] Procedure: XR finger RT min 2V Ordering Provider: Maris Crabtree D.O. PROCEDURE: XR FINGER RT MIN 2V INDICATIONS: 3rd finger, laceration pad to nail on Monday TECHNIQUE: AP hand, 2 views of the third finger(s) acquired. COMPARISON: None. FINDINGS: Bones: No fractures or dislocations. No suspicious bony lesions. Soft tissues: Laceration apparent at the volar aspect of the distal third digit. No suspicious soft tissue calcifications. No radiopaque foreign body. IMPRESSION: No acute osseous abnormality. Dictated by: Lit Mccormick M.D. on 08/13/2019 at 16:12 Approved by: Lit Mccormick M.D. on 08/13/2019 at 16:13 Discharge Plan Departure Patient Disposition: Home Clinical Impression: Laceration of finger Discharge Date/Time: 08/13/19 16:53 Instructions: DI for Open Laceration Activity Restrictions/Additional Instructions: Follow up with primary care physician in the next 2-3 days for recheck. Take antibiotics until completely gone. Your prescription was sent to [facility] in [place]. Wound Care: Keep wound(s) clean and dry. Wash daily with soap and water only. Do not use over the counter products (alcohol or peroxide)on the wounds unless instructed by a physician. You may apply a triple antibiotic ointment. If wound condition worsens (increased/expanding redness, developing fluid blisters, or worsening pain), either contact your doctor for an urgent re-assessment , or return to the Emergency Department. Return to the Emergency Department for any new or worsening symptoms. Return if fever greater than 100.4 Fahrenheit, increased swelling, increasing pain or worsening symptoms such as increased discharge or spreading redness. If it becomes painful to flex or extend your finger or other new or concerning symptoms. Prescriptions: New doxycycline hyclate 100 mg tablet 100 mg PO BID Qty: 14 RF: 0 No Action tamsulosin 0.4 mg capsule 0.8 mg PO DAILY RF: 0 lisinopril-hydrochlorothiazide 20-25 mg tablet 1 tab PO DAILY RF: 0 propranolol 160 mg capsule,extended release 24 hr 160 mg PO DAILY RF: 0 hydrocodone-acetaminophen 7.5-325 mg tablet 1 tab PO TID RF: 0 Referrals: Ekaterina Thomas PA-C [Primary Care Provider] -
--- NOTE | 2019-08-13 15:50 | DI.RAD.S_ITS ---
PROCEDURE: XR FINGER RT MIN 2V INDICATIONS: 3rd finger, laceration pad to nail on Monday TECHNIQUE: AP hand, 2 views of the third finger(s) acquired. COMPARISON: None. FINDINGS: Bones: No fractures or dislocations. No suspicious bony lesions. Soft tissues: Laceration apparent at the volar aspect of the distal third digit. No suspicious soft tissue calcifications. No radiopaque foreign body. IMPRESSION: No acute osseous abnormality. Dictated by: Lit Mccormick M.D. on 08/13/2019 at 16:12 Approved by: Lit Mccormick M.D. on 08/13/2019 at 16:13
[2019-08-13] MEDS: TET,DIPH,PERTUSS(ACELL),VAC/PF 0.5 ML SYRINGE IM (16:01)
[2019-08-13 16:52] VITALS: BP 133/88; PULSE 68; RESP 14
== END 2019-08-13 16:53 | disposition home or self-care (01) ==
PROVIDERS: Emergency Provider Emergency Medicine; Family Provider Internal Medicine; PCP Physician Assistant
DX: S61.212A Laceration without foreign body of right middle finger without damage to nail, initial encounter (principal); Z23 Encounter for immunization
CPT/HCPCS: 73140; 90471; 99283; 90715

== ENCOUNTER → 2019-08-20 14:10 | Outpatient (ROUT) | payer MEDICARE, SELFPAY | PROVIDERS: Visit Provider Physician Assistant | DX: R39.9 Unspecified symptoms and signs involving the genitourinary system (principal) | CPT/HCPCS: 87086 ==

== ENCOUNTER → 2019-10-31 10:44 | Outpatient (CLI) | payer MEDICARE, SELFPAY ==
[2019-10-31 12:19] LABS: Prostate Specific Antigen 0.616 ng/mL (0.10-4.00)
== END ==
PROVIDERS: Family Provider Internal Medicine; PCP Physician Assistant; Visit Provider Urology
DX: N40.1 Benign prostatic hyperplasia with lower urinary tract symptoms (principal)
CPT/HCPCS: 36415; 84153

== ENCOUNTER → 2019-11-11 19:15 | Outpatient (ROUT) | payer MEDICARE, SELFPAY ==
[2019-11-11 19:29] LABS: Hemoglobin A1C% w Est Avg Glu 8.1 % (4.0-6.0)
[2019-11-11 19:31] LABS: Alanine Aminotransferase 41 IU/L (<50); Albumin 4.4 g/dL (3.5-5.0); Albumin Globulin Ratio 1.4 (1.0-2.8); Alkaline Phosphatase 104 U/L (38-126); Aspartate Aminotransferase 45 IU/L (17-59); Bilirubin Total 0.9 mg/dL (0.2-1.3); Blood Urea Nitrogen 16 mg/dL (9-20); Calcium 9.8 mg/dL (8.4-10.2); Carbon Dioxide 30 mmol/L (22-32); Chloride 92 mmol/L (98-107); Cholesterol 194 mg/dL (140-199); Estimated Glomerular Filt Rate > 60.0 mL/min (>60); Globulin 3.1 g/dL (1.7-4.1); Glucose 267 mg/dL (70-100); HDL Cholesterol 22 mg/dL (40-60); Potassium 3.8 mmol/L (3.4-5.1); Sodium 134 mmol/L (137-145); Total Protein 7.5 g/dL (6.3-8.2)
[2019-11-11 19:37] LABS: Add Manual Diff / Slide Review NO; Basophils Absolute Auto 100 /uL (0-100); Eosinophils Absolute Auto 300 /uL (0-450); Eosinophils Percent Auto 5.2 % (2-4); HEMOLYSIS 30 (0-50); Hematocrit 46.9 % (41-53); Hemoglobin 16.8 g/dL (13.5-17.5); Lymphocytes Absolute Auto 1800 /uL (1100-4500); Lymphocytes Percent Auto 29.4 % (25-40); Mean Corpuscular HGB Conc 35.7 % (30-36); Mean Corpuscular Hemoglobin 32.1 PG (26-34); Mean Corpuscular Volume 89.8 fL (80-100); Monocytes Absolute Auto 600 /uL (0-900); Monocytes Percent Auto 10.4 % (3-14); Neutrophils Absolute Auto 3300 /uL (1500-7000); Platelet Count 205 X10^3/uL (150-400); Red Blood Cell Count 5.22 X10^6/uL (4.5-5.9); Red Cell Distribution Width 13.3 % (11.6-14.8); White Blood Cell Count 6.2 X10^3/uL (4.5-11.0)
[2019-11-11 19:47] LABS: Triglycerides 971 mg/dL (35-150)
== END ==
PROVIDERS: Family Provider Internal Medicine; PCP Physician Assistant; Visit Provider Physician Assistant
DX: I10 Essential (primary) hypertension (principal); E78.2 Mixed hyperlipidemia; R73.03 Prediabetes
CPT/HCPCS: 80053; 80061; 83036; 85025

== ENCOUNTER → 2020-02-27 08:55 | Outpatient (CLI) | payer MEDICARE, SELFPAY ==
[2020-02-27 10:27] LABS: Hemoglobin A1C% w Est Avg Glu 8.1 % (4.0-6.0)
[2020-02-27 11:10] LABS: Blood Urea Nitrogen 16 mg/dL (9-20); Calcium 9.4 mg/dL (8.4-10.2); Carbon Dioxide 30 mmol/L (22-32); Chloride 97 mmol/L (98-107); Estimated Glomerular Filt Rate > 60.0 mL/min (>60); Glucose 176 mg/dL (70-100); HEMOLYSIS < 15 (0-50); Potassium 3.9 mmol/L (3.4-5.1); Sodium 135 mmol/L (137-145)
== END ==
PROVIDERS: Family Provider Internal Medicine; PCP Physician Assistant; Referring Provider Physician Assistant; Visit Provider Physician Assistant
DX: E11.9 Type 2 diabetes mellitus without complications (principal)
CPT/HCPCS: 36415; 80048; 83036

== ENCOUNTER → 2020-05-20 08:32 | Outpatient (CLI) | payer MEDICARE, SELFPAY ==
--- NOTE | 2020-05-20 | DI.MRI.S_ITS ---
PROCEDURE: MR LUMBAR SPINE WO CON INDICATIONS: Spinal stenosis, lumbar region without neurogenic TECHNIQUE: Noncontrast sagittal T1 spin echo and T2 fast echo, sagittal STIR, axial T1 and T2 fast spin echo through the lumbar spine. In cases with scoliosis, additional coronal T2 fast spin echo may be performed. COMPARISON: [facility], L-SPINE 2-3 VIEWS, 08/05/2013, 11:56. FINDINGS: Image quality: Excellent. Alignment and Curvature: 5 lumbar type vertebral bodies are present by plain film. There is loss of normal lumbar lordosis. There is mild grade 1 retrolisthesis of L2 on L3, L3 on L4, and L4 on L5. Bone Marrow: Marrow is of normal overall signal. No acute vertebral body compression fractures. Left posterior L1 hemangioma. Mild reactive signal within the endplates adjacent to the L1-L2, L2-L3, L3-L4, L4-L5, and L5-S1 intervertebral discs. Spinal Cord: Conus medullaris terminates at the L1-L2 disc space level. Visualized cord demonstrates normal signal and size. Paraspinous Soft Tissues: No paravertebral masses. Retroaortic left renal vein. L1-L2: Mild disc desiccation and diffuse disc bulge. Congenital canal stenosis. Mild facet and ligamentum flavum hypertrophy. Mild epidural lipomatosis. Mild canal stenosis. Mild bilateral foraminal stenosis. L2-L3: Congenital canal stenosis. Mild disc desiccation and diffuse disc bulge. Mild facet and ligamentum flavum hypertrophy. Mild epidural lipomatosis. Moderate canal stenosis. Mild bilateral foraminal stenosis. L3-L4: Moderate disc height loss and desiccation. Moderate diffuse disc bulge. Mild facet and ligamentum flavum hypertrophy. Severe canal stenosis. Moderate bilateral foraminal stenosis, right greater than left. L4-L5: Moderate disc height loss and desiccation. Congenital canal stenosis. Mild diffuse disc bulge/osteophyte. Moderate facet hypertrophy. Mild ligamentum flavum hypertrophy. Severe canal stenosis. Moderate foraminal stenosis bilaterally. L5-S1: Congenital canal stenosis. Moderate disc height loss and desiccation. Mild diffuse disc bulge. Moderate bilateral facet hypertrophy. Moderate canal stenosis. Severe bilateral foraminal stenosis. Bilateral L5 nerve root compression. IMPRESSION: 1. Multilevel degenerative disc and facet disease, as well as ligamentum flavum hypertrophy and epidural lipomatosis. 2. Multilevel canal stenosis worst at L3-L4 and L4-L5 where there are severe canal stenosis. 3. Multilevel foraminal stenoses, worst at L5-S1 bilaterally where there is L5 nerve root compression. Recommend correlation with clinical symptoms to ascertain relevance of this finding. Dictated by: Lux Montero M.D. on 05/20/2020 at 10:54 Approved by: Lux Montero M.D. on 05/20/2020 at 10:59
--- NOTE | 2020-05-20 | DI.MRI.S_ITS ---
PROCEDURE: MR CERVICAL SPINE WO CON INDICATIONS: Spinal stenosis, lumbar region without neurogenic TECHNIQUE: Noncontrast sagittal T1 spin echo and T2 fast spin echo, sagittal STIR, foraminal oblique sagittal T2 fast spin echo, and axial gradient echo or T2 fast spin echo through the cervical spine. COMPARISON: None. FINDINGS: Image quality: Excellent. Alignment and Curvature: There is loss of normal cervical lordosis. Mild grade 1 retrolisthesis of C6 on C7. Bone Marrow: Marrow demonstrates normal overall signal. Anterior fusion of C5-C6. Mild reactive signal within the endplates adjacent to the C2-C3, C3-C4, C4-C5, C6-C7, and C7-T1 intervertebral discs. Spinal Cord: Visualized spinal cord has normal size and signal. No cerebellar tonsillar herniation. Paraspinous Soft Tissues: No paravertebral masses. Prevertebral soft tissues are normal in thickness. C2-C3: Moderate disc desiccation and diffuse disc bulge. Moderate left and mild right facet and uncovertebral hypertrophy. Mild canal stenosis. Severe left and mild right foraminal stenosis. Left C3 nerve root compression. C3-C4: Congenital canal stenosis. Moderate disc desiccation and mild diffuse disc bulge. Moderate facet and uncovertebral hypertrophy. Moderate canal stenosis. Severe bilateral foraminal stenosis. Bilateral C4 nerve root compression. C4-C5: Congenital canal stenosis. Moderate disc desiccation. Mild diffuse disc bulge. Moderate facet and uncovertebral hypertrophy. Moderate canal stenosis. Moderate to severe bilateral foraminal stenosis. Bilateral C5 nerve root compression. C5-C6: Status post fusion. Mild bilateral facet and uncovertebral hypertrophy. No significant canal stenosis. Mild bilateral foraminal stenosis. C6-C7: Congenital canal stenosis. Moderate disc desiccation. Mild disc height loss. Mild diffuse disc bulge. Mild facet and uncovertebral hypertrophy. Mild canal stenosis. Moderate bilateral foraminal stenosis. C7-T1: Congenital canal stenosis. Moderate disc desiccation. Mild diffuse disc bulge with superimposed left paracentral protrusion. Moderate facet and uncovertebral hypertrophy bilaterally. Moderate to severe canal stenosis. Minimal left cord flattening. Moderate right and severe left foraminal stenosis. Left C8 nerve root compression. IMPRESSION: 1. Multilevel degenerative disc and facet disease, as well as uncovertebral hypertrophy, superimposed on diffuse congenital canal stenosis. 2. Multilevel canal stenosis, worst at C7-T1 where there is minimal cord flattening. 3. Multilevel foraminal stenosis, worst at C2-C3, C3-C4, C4-C5, and C7-T1 where there is associated intraforaminal nerve root compression. Recommend correlation with clinical symptoms to ascertain relevance of these findings. Dictated by: Lux Montero M.D. on 05/20/2020 at 10:17 Approved by: Lux Montero M.D. on 05/20/2020 at 10:22
--- NOTE | 2020-05-20 | DI.MRI.S_ITS ---
PROCEDURE: MR THORACIC SPINE WO CON INDICATIONS: Spinal stenosis, lumbar region without neurogenic TECHNIQUE: Noncontrast sagittal T1 spine echo and T2 fast spin echo, sagittal STIR, axial T1 and T2 fast spin echo through the thoracic spine. COMPARISON: None. FINDINGS: Image quality: Excellent. Alignment and Curvature: There is normal bony alignment. Bone Marrow: Marrow is of normal overall signal. No acute vertebral body compression fractures. Spinal Cord: Visualized spinal cord is normal in size and signal. Paraspinous Soft Tissues: No paravertebral masses. Disc space levels: Multilevel disc desiccation. Mild diffuse disc bulges are present at C7-T1, T1-T2, T2-T3, and T3-T4, causing mild canal stenosis. There is mild canal stenosis with minimal anterior cord flattening at T2-T3. IMPRESSION: 1. Multilevel degenerative disc disease, causing mild multilevel canal stenosis. 2. Minimal anterior cord flattening at T2-T3. Dictated by: Lux Montero M.D. on 05/20/2020 at 10:49 Approved by: Lux Montero M.D. on 05/20/2020 at 10:54
== END ==
PROVIDERS: Family Provider Internal Medicine; PCP Physician Assistant; Referring Provider Physician Assistant; Visit Provider Physician Assistant
DX: M50.31 Other cervical disc degeneration, high cervical region (principal); M48.02 Spinal stenosis, cervical region; M43.12 Spondylolisthesis, cervical region; M51.34 Other intervertebral disc degeneration, thoracic region; M48.04 Spinal stenosis, thoracic region; M51.36 Other intervertebral disc degeneration, lumbar region; M51.37 Other intervertebral disc degeneration, lumbosacral region; M48.061 Spinal stenosis, lumbar region without neurogenic claudication; M48.07 Spinal stenosis, lumbosacral region; E88.2 Lipomatosis, not elsewhere classified; Z98.890 Other specified postprocedural states; Z98.1 Arthrodesis status
CPT/HCPCS: 72141; 72146; 72148

== ENCOUNTER → 2020-08-11 15:07 | Outpatient (ROUT) | payer MEDICARE, SELFPAY ==
[2020-08-11 15:57] LABS: Alanine Aminotransferase 33 IU/L (<50); Albumin 4.4 g/dL (3.5-5.0); Albumin Globulin Ratio 1.6 (1.0-2.8); Alkaline Phosphatase 57 U/L (38-126); Aspartate Aminotransferase 39 IU/L (17-59); BUN Creatinine Ratio 18.6 (6-22); Bilirubin Total 0.7 mg/dL (0.2-1.3); Blood Urea Nitrogen 18 mg/dL (9-20); Calcium 9.7 mg/dL (8.4-10.2); Carbon Dioxide 30 mmol/L (22-32); Chloride 97 mmol/L (98-107); Cholesterol 155 mg/dL (140-199); Estimated Glomerular Filt Rate > 60.0 mL/min (>60); Globulin 2.8 g/dL (1.7-4.1); Glucose 156 mg/dL (70-100); HDL Cholesterol 22 mg/dL (40-60); HEMOLYSIS 20 (0-50); LDL Cholesterol Calculated 55 mg/dL (<100); Potassium 3.7 mmol/L (3.4-5.1); Sodium 135 mmol/L (137-145); Total Protein 7.2 g/dL (6.3-8.2); Triglycerides 390 mg/dL (35-150)
[2020-08-11 16:04] LABS: Add Manual Diff / Slide Review NO; Basophils Absolute Auto 100 /uL (0-100); Basophils Percent Auto 0.9 % (0-2); Eosinophils Absolute Auto 400 /uL (0-450); Eosinophils Percent Auto 5.5 % (2-4); Hemoglobin 15.9 g/dL (13.5-17.5); Lymphocytes Absolute Auto 1800 /uL (1100-4500); Lymphocytes Percent Auto 26.8 % (25-40); Mean Corpuscular HGB Conc 34.5 % (30-36); Mean Corpuscular Hemoglobin 31.6 PG (26-34); Mean Corpuscular Volume 91.6 fL (80-100); Monocytes Absolute Auto 700 /uL (0-900); Neutrophils Absolute Auto 3800 /uL (1500-7000); Neutrophils Percent Auto 56.8 % (50-75); Platelet Count 253 X10^3/uL (150-400); Red Blood Cell Count 5.02 X10^6/uL (4.5-5.9); Red Cell Distribution Width 12.9 % (11.6-14.8); White Blood Cell Count 6.8 X10^3/uL (4.5-11.0)
[2020-08-11 16:07] LABS: Hemoglobin A1C% w Est Avg Glu 6.9 % (4.0-6.0)
== END ==
PROVIDERS: Family Provider Internal Medicine; PCP Physician Assistant; Visit Provider Physician Assistant
DX: E11.69 Type 2 diabetes mellitus with other specified complication (principal); E78.2 Mixed hyperlipidemia; E78.1 Pure hyperglyceridemia
CPT/HCPCS: 80053; 80061; 83036; 85025

== ENCOUNTER → 2020-12-07 08:31 | Outpatient (CLI) | payer MEDICARE, SELFPAY ==
[2020-12-07 09:14] LABS: Add Manual Diff / Slide Review NO; Basophils Absolute Auto 100 /uL (0-100); Basophils Percent Auto 1.2 % (0-2); Eosinophils Absolute Auto 400 /uL (0-450); Eosinophils Percent Auto 7.4 % (2-4); Hematocrit 45.6 % (41-53); Hemoglobin 16.2 g/dL (13.5-17.5); Lymphocytes Absolute Auto 1900 /uL (1100-4500); Lymphocytes Percent Auto 31.5 % (25-40); Mean Corpuscular HGB Conc 35.5 % (30-36); Mean Corpuscular Hemoglobin 31.7 PG (26-34); Mean Corpuscular Volume 89.4 fL (80-100); Monocytes Absolute Auto 700 /uL (0-900); Monocytes Percent Auto 11.6 % (3-14); Neutrophils Absolute Auto 2900 /uL (1500-7000); Neutrophils Percent Auto 48.3 % (50-75); Platelet Count 217 X10^3/uL (150-400); Red Cell Distribution Width 12.8 % (11.6-14.8); White Blood Cell Count 5.9 X10^3/uL (4.5-11.0)
[2020-12-07 09:38] LABS: Alanine Aminotransferase 46 IU/L (<50); Albumin 4.6 g/dL (3.5-5.0); Albumin Globulin Ratio 1.8 (1.0-2.8); Alkaline Phosphatase 78 U/L (38-126); Aspartate Aminotransferase 48 IU/L (17-59); BUN Creatinine Ratio 16.5 (6-22); Bilirubin Total 0.7 mg/dL (0.2-1.3); Blood Urea Nitrogen 14 mg/dL (9-20); Calcium 9.4 mg/dL (8.4-10.2); Carbon Dioxide 30 mmol/L (22-32); Chloride 95 mmol/L (98-107); Cholesterol 162 mg/dL (140-199); Estimated Glomerular Filt Rate > 60.0 mL/min (>60); Globulin 2.6 g/dL (1.7-4.1); Glucose 221 mg/dL (80-110); HDL Cholesterol 23 mg/dL (40-60); HEMOLYSIS < 15 (0-50); Potassium 3.5 mmol/L (3.4-5.1); Sodium 134 mmol/L (137-145); Total Protein 7.2 g/dL (6.3-8.2)
[2020-12-07 09:44] LABS: NT-proBNP (BNP-Adult 18+) 32 pg/mL (<125)
[2020-12-07 09:49] LABS: Triglycerides 621 mg/dL (35-150)
[2020-12-07 14:05] LABS: COVID19 -Nasal RAPID Negative (Negative)
== END ==
PROVIDERS: Nurse Practitioner; Family Provider Internal Medicine; PCP Physician Assistant; Referring Provider Physician Assistant; Visit Provider Physician Assistant
DX: Z01.812 Encounter for preprocedural laboratory examination (principal); Z20.822 Contact with and (suspected) exposure to COVID-19; E11.69 Type 2 diabetes mellitus with other specified complication; I10 Essential (primary) hypertension; R06.02 Shortness of breath; E78.1 Pure hyperglyceridemia; E66.01 Morbid (severe) obesity due to excess calories
CPT/HCPCS: 36415; 80053; 80061; 83036; 83880; 85025; 87635; C9803

== ENCOUNTER → 2020-12-09 13:31 | Outpatient (CLI) | payer MEDICARE, SELFPAY ==
--- NOTE | 2020-12-09 | DI.ECHO.S_ITS ---
[facility]---------+ [facility] +---------+ : : [address] : : : : [id number] : : : : Phone: [phone]+ Echocardiogram Report + + :Name: NALDO MUHAMMAD Study Date: 12/09/2020 Height: 72 in : :[facility] : Weight: 323 lb : : Gender: Male BSA: 2.6 m2 : :: 1960 Age: 60 yrs BP: 146/89 mmHg: :Reason For Study: OBESITY, SHORTNESS OF BREATH : :Ordering Physician: YO, : :YSABEL Holman Performed By: Heidi Vann : :Referring: YSABEL RAM : + + Interpretation Summary The study quality was technically difficult. The ejection fraction is estimated to be 45-50%. Regional wall motion abnormalities cannot be excluded due to limited visualization. There is no significant valvular heart disease. Procedure: A two-dimensional transthoracic echocardiogram with color flow and Doppler was performed. There is no prior echocardiogram noted for this patient. The study quality was technically difficult. The patient was in sinus rhythm with heart rates between 62-80 bpm during the exam. Left Ventricle: The left ventricle is borderline dilated. There is mild concentric left ventricular hypertrophy. The ejection fraction is estimated to be 45-50%. Septal motion is consistent with conduction abnormality. Regional wall motion abnormalities cannot be excluded due to limited visualization. Diastolic parameters suggest probable normal left ventricular diastolic function and normal filling pressures. Right Ventricle: The right ventricle is normal in size and function. Atria: Both atria are normal in size. There is no Doppler evidence for an interatrial shunt. Mitral Valve: The mitral valve is normal in structure and function. There is trace mitral regurgitation. Aortic Valve: The aortic valve opens well. There is no aortic valve stenosis. No aortic regurgitation is present. Tricuspid Valve: The tricuspid valve is normal in structure and function. There is trace tricuspid regurgitation. Pulmonic Valve: The pulmonic valve is not well visualized. There is no pulmonic valvular regurgitation. Great Vessels: The aortic root is borderline dilated. The ascending aorta could not be visualized. The inferior vena cava was not well visualized. Pericardium/ Pleura There is no pericardial effusion. There is no pleural effusion. MMode/2D Measurements & Calculations LVIDd: 6.2 cm LVOT diam: 2.3 cm LVIDs: 4.6 cm Ao root diam: 3.7 cm FS: 26.2 % Ao Arch Diam (Prox Trans): 3.2 cm EPSS: 1.2 cm IVSd: 1.2 cm LVPWd: 0.92 cm LV anthony. diameter/BSA (cm/m^2): 2.4 LV sys. diameter/BSA (cm/m^2): 1.7 LA A2 area: 17.4 cm2 RA long axis: 5.2 cm LA A4 area: 15.7 cm2 RA area: 14.8 cm2 LA length (vol): 4.7 cm RA vol: 35.5 ml LA vol: 48.9 ml RA : 13.6 ml/m2 LA vol index: 18.7 ml/m2 TAPSE: 1.9 cm Doppler Measurements & Calculations Ao V2 max: 111.0 cm/sec LVOT Max Leonid: 75.9 cm/sec Ao V2 mean: 78.6 cm/sec LV V1 max P.3 mmHg Ao max P.9 mmHg LV V1 VTI: 15.2 cm Ao mean P.8 mmHg KAROL(I,D): 3.0 cm2 Ao V2 VTI: 21.8 cm KAROL(V,D): 2.9 cm2 sev ratio: 0.70 KAROL indexed to BSA (cm^2/m^2): 1.1 MV E max leonid: 62.6 cm/sec PA V2 max: 78.5 cm/sec MV A max leonid: 76.8 cm/sec PA V2 mean: 49.6 cm/sec MV E/A: 0.81 PA mean P.2 mmHg Med Peak E' Leonid: 4.4 cm/sec PA pr(Accel): 19.1 mmHg E/E' med: 14.2 Lat Peak E' Leonid: 8.4 cm/sec E/E' lat: 7.5 E/e' average: 10.8 MV dec time: 0.24 sec SV(LVOT): 65.3 ml Reading Physician:03:40 PM
--- NOTE | 2020-12-09 20:57 | DI.NM.S_ITS ---
DATE OF SERVICE: 12/09/2020 PROCEDURE PERFORMED: Standard exercise treadmill stress test without imaging. ORDERING PROVIDER: Ekaterina Thomas PA-C. INDICATIONS: The patient is a 60-year-old morbidly obese male with exertional dyspnea. FINDINGS: 1. The patient was able to exercise for 5 minutes 30 seconds on a standard Fernando protocol suggesting moderate-severely reduced exercise capacity with an TINY of +33 percent, achieving 7.0 METs. 2. He had a normal heart rate response, achieving a maximum heart rate of 140 BPM (88 percent of his predicted maximum). He had a borderline hypertensive blood pressure response with a resting blood pressure of 140/100, that increased to a maximum of 180/110. 3. He had no chest discomfort, but had limiting dyspnea with slight wheezing, but maintained oxygen saturation of 95 percent. 4. Resting ECG shows sinus rhythm with a borderline interventricular conduction delay, but relatively normal ST segments. There were no significant ST-segment shifts with exercise and no arrhythmias were seen. IMPRESSION: 1. Normal exercise treadmill study with no electrocardiographic evidence of ischemia. 2. Moderate to severely reduced exercise capacity with limiting dyspnea, but no chest discomfort. 3. Mild hypertensive blood pressure response to exercise. Killian Dhaliwal - SARANYA/yuridia/lin doc#: [id number]/job#: [id number] dd: 12/09/2020 16:55:00 dt: 12/09/2020 20:19:00 DICTATING /COPIES TO: Christos Butt MD; Ekaterina Thomas PA-C COPIES MNE: [id number]
== END ==
PROVIDERS: Family Provider Internal Medicine; PCP Physician Assistant; Referring Provider Physician Assistant; Visit Provider Physician Assistant
DX: R06.02 Shortness of breath (principal); R06.09 Other forms of dyspnea; E66.01 Morbid (severe) obesity due to excess calories; E78.1 Pure hyperglyceridemia; I10 Essential (primary) hypertension
CPT/HCPCS: 93017; 93306

== ENCOUNTER → 2021-05-05 08:45 | Outpatient (CLI) | payer MEDICARE, SELFPAY ==
[2021-05-05 09:19] LABS: Add Manual Diff / Slide Review NO; Basophils Absolute Auto 100 /uL (0-100); Basophils Percent Auto 1.1 % (0-2); Eosinophils Absolute Auto 400 /uL (0-450); Eosinophils Percent Auto 6.4 % (2-4); Hematocrit 44.2 % (41-53); Hemoglobin 15.5 g/dL (13.5-17.5); Lymphocytes Absolute Auto 1800 /uL (1100-4500); Mean Corpuscular Hemoglobin 31.7 PG (26-34); Mean Corpuscular Volume 90.6 fL (80-100); Monocytes Absolute Auto 800 /uL (0-900); Monocytes Percent Auto 11.6 % (3-14); Neutrophils Absolute Auto 3700 /uL (1500-7000); Neutrophils Percent Auto 53.9 % (50-75); Platelet Count 225 X10^3/uL (150-400); Red Blood Cell Count 4.88 X10^6/uL (4.5-5.9); Red Cell Distribution Width 12.8 % (11.6-14.8); White Blood Cell Count 6.8 X10^3/uL (4.5-11.0)
[2021-05-05 10:15] LABS: Alanine Aminotransferase 36 IU/L (<50); Albumin 4.2 g/dL (3.5-5.0); Albumin Globulin Ratio 1.8 (1.0-2.8); Alkaline Phosphatase 67 U/L (38-126); Aspartate Aminotransferase 40 IU/L (17-59); BUN Creatinine Ratio 19.5 (6-22); Bilirubin Total 0.8 mg/dL (0.2-1.3); Blood Urea Nitrogen 17 mg/dL (9-20); Calcium 9.7 mg/dL (8.4-10.2); Carbon Dioxide 27 mmol/L (22-32); Chloride 101 mmol/L (98-107); Cholesterol 138 mg/dL (140-199); Estimated Glomerular Filt Rate > 60.0 mL/min (>60); Globulin 2.4 g/dL (1.7-4.1); Glucose 195 mg/dL (80-110); HDL Cholesterol 21 mg/dL (40-60); HEMOLYSIS 22 (0-50); Sodium 136 mmol/L (137-145); Total Protein 6.6 g/dL (6.3-8.2); Triglycerides 499 mg/dL (35-150)
[2021-05-05 17:10] LABS: Hemoglobin A1C% w Est Avg Glu 7.8 % (4.0-6.0)
== END ==
PROVIDERS: Family Provider Internal Medicine; PCP Physician Assistant; Referring Provider Physician Assistant; Visit Provider Physician Assistant
DX: M48.061 Spinal stenosis, lumbar region without neurogenic claudication (principal); E11.69 Type 2 diabetes mellitus with other specified complication; E78.2 Mixed hyperlipidemia
CPT/HCPCS: 36415; 80053; 80061; 83036; 85025

== ENCOUNTER 2022-04-11 01:45 | Emergency (ER) | payer MEDICARE, SELFPAY ==
[2022-04-11 01:48] VITALS: PULSE 73; O2SAT 98
--- NOTE | 2022-04-11 01:49 | DI.RAD.S_ITS ---
PROCEDURE: XR CHEST 1V INDICATIONS: covid + TECHNIQUE: One view of the chest was acquired. COMPARISON: None. FINDINGS: Surgical changes and devices: None. Lungs and pleura: Ill-defined opacity in right lower lung field is seen. Left lung is clear. No pleural effusions or pneumothorax. Mediastinum: Mediastinal contours appear normal. Heart size is normal. Bones and chest wall: No suspicious bony lesions. Overlying soft tissues appear unremarkable. IMPRESSION: Finding may represent small right lower lobe infiltrate versus pneumonitis. No pleural effusion or pneumothorax. No discrepancies from preliminary reading. Dictated by: Mitchel Bauer M.D. on 04/11/2022 at 7:32 Approved by: Mitchel Bauer M.D. on 04/11/2022 at 7:33
[2022-04-11 01:50] VITALS: BP 159/94; PULSE 76; RESP 22; O2SAT 97
[2022-04-11 02:00] VITALS: BP 147/86; PULSE 71; O2SAT 97
--- NOTE | 2022-04-11 02:03 | ED.SOB ---
HPI - SOB/Dyspnea General Chief Complaint: Shortness of Breath/Dyspnea Stated Complaint: SOB Covid Time Seen by Provider: 04/11/22 01:49 Source: patient and EMS Mode of arrival: EMS History of Present Illness HPI Narrative: 61-year-old male with history of hypertension is a former smoker, however only for 2 years presents with known COVID stating he has had increasing shortness of breath over the past few days. He states his tested positive on Monday and he felt fine until Monday morning when he had a relatively rapid onset of body aches, sore throat, headache and dry hacking cough. He was tested and found to be positive. Over the course of the week and he has slowly been worsening and over the course of this evening started coughing, producing sputum which has eventually become blood tinged. EMS was called and they found stable vital signs with pulse ox in the mid 90s but increased work of breathing which improved tremendously with the use of a DuoNeb EN route. He has had nausea but denies any vomiting. He has had some loose stools but is otherwise well. Related Data Home Medications Medication Instructions Recorded Confirmed hydrocodone 7.5 mg-acetaminophen 1 tab PO TID 01/22/19 08/13/19 325 mg tablet propranolol 160 mg capsule,24 160 mg PO DAILY 01/22/19 08/13/19 hr,extended release lisinopril 20 1 tab PO DAILY 08/13/19 08/13/19 mg-hydrochlorothiazide 25 mg tablet tamsulosin 0.4 mg capsule 0.8 mg PO DAILY 08/13/19 Previous Rx's Medication Instructions Recorded doxycycline hyclate 100 mg tablet 100 mg PO BID #14 tabs 08/13/19 prednisone 20 mg tablet 20 mg PO DAILY #5 tabs 04/11/22 Allergies Allergy/AdvReac Type Severity Reaction Status Date / Time Penicillins [PENICILLINS] Allergy Unknown Verified 08/21/19 15:55 sumatriptan [From Imitrex] Allergy Verified 08/21/19 15:55 Review of Systems Review of Systems Narrative: GENERAL: See HPI HEENT: See HPI RESPIRATORY: See HPI CARDIOVASCULAR: Denies chest pain, palpitations, orthopnea, edema, GASTROINTESTINAL: see HPI : Denies dysuria, frequency, incontinence, hematuria, urinary retention. MUSCULOSKELETAL: denies weakness, joint pain, or bony pain SKIN: Denies rash, skin lesions, or other NEUROLOGIC: Denies weakness, headache, numbness, change in speech, confusion, seizures, incoordination. PSYCHIATRIC: No concerning psychosocial issues. 12 point review of systems is negative except for those stated above Patient History Social History Smoking Status: Former smoker Smoking Status: Former smoker alcohol intake frequency: holidays/special occasions only Substance Use Type: does not use Exam Narrative Exam Narrative: GENERAL: [61] year old patient appears stated age. Well-developed patient, in mild distress. Appears to feel unwell but demonstrating no significant signs of respiratory distress HEAD: Atraumatic. Normocephalic. EYES: Pupils equal round and reactive. Extraocular motions intact. No scleral icterus. No injection or drainage. ENT: Nose without bleeding, purulent drainage. Throat without erythema, tonsillar hypertrophy or exudate. Airway patent. NECK: Trachea midline. Non tender CARDIOVASCULAR: Regular rate and rhythm without murmurs, gallops, or rubs. RESPIRATORY: Coarse sounds throughout with some expiratory wheeze more notable in the apices, faint crackles in bilateral bases GASTROINTESTINAL: Abdomen soft, non-tender, nondistended. EXTREMITIES: No edema or joint tenderness. BACK: Nontender without deformity or crepitance. No flank tenderness. NEURO: AOx3. SKIN: No rash or erythema of visible areas Initial Vital Signs Initial Vital Signs: Vital Signs Pulse Rate 73 04/11/22 01:48 Pulse Oximetry 98 04/11/22 01:48 Course Orders Ordered: ED Orders 04/11/22 01:49 XR chest 1V Stat Discontinued Medications Albuterol (Albuterol Hfa Prepack) 1 box MISC SEEINSTR ONE Stop: 04/11/22 02:42 Last Admin: 04/11/22 02:53 Dose: 1 box Documented By: BEAN Prednisone (Prednisone 20 Mg Tablet) 40 mg PO NOW ONE Stop: 04/11/22 02:42 Last Admin: 04/11/22 02:54 Dose: 40 mg Documented By: ROSSI Vital Signs Vital signs: Vital Signs - 8 hr 04/11/22 01:50 04/11/22 01:48 04/11/22 02:00 Pulse Rate 76 73 Respiratory Rate 22 Blood Pressure 159/94 H 147/86 H Pulse Oximetry 97 98 Oxygen Delivery Method Aerosol Mask 04/11/22 02:00 04/11/22 02:30 04/11/22 02:30 Pulse Rate 71 72 Respiratory Rate Blood Pressure 137/76 Pulse Oximetry 97 94 Oxygen Delivery Method 04/11/22 03:00 04/11/22 03:00 Pulse Rate 75 Respiratory Rate Blood Pressure 130/77 Pulse Oximetry 93 Oxygen Delivery Method Discharge Plan Departure Patient Disposition: Home Clinical Impression: COVID, Exacerbation of reactive airway disease Instructions: DI for COVID-19 (Suspected or Confirmed ) Activity Restrictions/Additional Instructions: *You have been diagnosed with [ COVID-19] Please use the inhaler as instructed We have sent a prescription of a steroid to your pharmacy ([facility]) *What to do: ?* per recommendations from the CDC and the [facility] Department of Health ?* stay home except to get medical care. ?Restrict activities outside your home, except for getting medical care. ?Do not go to work, school, or public areas. ?Avoid using public transportation, ride sharing, or taxis. ?* separate yourself from other people in your home. ?* call ahead before visiting your doctor ?* Wear a facemask ?* Cover your coughs and sneezes ?* Clean your hands often ?* Avoid sharing household items ?* Clean all high-touch services every day ?* Monitor your symptoms and seek prompt medical attention if your illness is worsening, particularly with difficulty in breathing. You may discontinue your isolation when: ?1. You have been fever-free for at least 24 hours without the use of fever reducing medication, AND ?2. Your symptoms are getting better, AND ?3. At least 5 days have passed since symptoms first appeared ?4. If you have fever, continue to stay home until fever resolves Individuals with laboratory confirmed COVID-19 who have not had any symptoms may discontinue home isolation when at least 5 days have passed since the date of their first COVID-19 diagnostic test and have had no subsequent illness You should notifiy any friends and family that have been in close contact *If up to date on COVID Vaccines, then they do not need to quarantine unless symptoms develop. Get tested on day 5 (or sooner if symptoms develop). Take precautions and watch for symptoms until day 10 *If NOT up to date on COVID Vaccines, then CDC recommends quarantine for at least 5 full days. Wear a well fitted mask at home if you must be around others. If they ?develop symptoms they should get tested. If they remain asymptomatic they should get tested on day 5. They should take precautions and monitor for symptoms until day 10. Prescriptions: New prednisone 20 mg tablet 20 mg PO DAILY Qty: 5 0RF Rx Instructions: administer with food or milk No Action tamsulosin 0.4 mg capsule 0.8 mg PO DAILY lisinopril-hydrochlorothiazide 20-25 mg tablet 1 tab PO DAILY doxycycline hyclate 100 mg tablet 100 mg PO BID Qty: 14 0RF propranolol 160 mg capsule,extended release 24 hr 160 mg PO DAILY hydrocodone-acetaminophen 7.5-325 mg tablet 1 tab PO TID Referrals: Ekaterina Thomas PA-C [Primary Care Provider] -
[2022-04-11 02:30] VITALS: BP 137/76; PULSE 72; O2SAT 94
[2022-04-11] MEDS: ALBUTEROL HFA PREPACK 1 BOX MISC (02:53)
[2022-04-11] MEDS: predniSONE 20 MG TABLET 40 MG PO (02:54)
[2022-04-11 03:00] VITALS: BP 130/77; PULSE 75; O2SAT 93
[2022-04-11 03:55] VITALS: BP 146/88; PULSE 75; RESP 18; O2SAT 95
== END 2022-04-11 03:56 | disposition home or self-care (01) ==
PROVIDERS: Emergency Provider Emergency Medicine; Family Provider Internal Medicine; PCP Physician Assistant
DX: U07.1 COVID-19 (principal); J45.901 Unspecified asthma with (acute) exacerbation
CPT/HCPCS: 71045; 99283

== ENCOUNTER → 2023-03-20 14:55 | Outpatient (CLI) | payer MEDICARE, SELFPAY ==
[2023-03-20 16:16] LABS: Blood Urea Nitrogen 17 mg/dL (9-20); Calcium 9.7 mg/dL (8.4-10.2); Carbon Dioxide 28 mmol/L (22-32); Chloride 97 mmol/L (98-107); Estimated Glomerular Filt Rate > 60 mL/min (>60); Glucose 134 mg/dL (80-110); HEMOLYSIS < 15 (0-50); Potassium 3.9 mmol/L (3.4-5.1); Sodium 135 mmol/L (137-145)
== END ==
PROVIDERS: Family Provider Internal Medicine; PCP Physician Assistant; Referring Provider Urology; Visit Provider Urology
DX: R31.29 Other microscopic hematuria (principal); N21.9 Calculus of lower urinary tract, unspecified; N32.0 Bladder-neck obstruction; N39.43 Post-void dribbling; R35.0 Frequency of micturition; R33.9 Retention of urine, unspecified; Z85.51 Personal history of malignant neoplasm of bladder; Z87.891 Personal history of nicotine dependence
CPT/HCPCS: 36415; 51798; 80048; 81002; 99214

== ENCOUNTER → 2023-04-08 14:36 | Outpatient (CLI) | payer MEDICARE, SELFPAY ==
--- NOTE | 2023-04-08 14:38 | DI.CT.S_ITS ---
PROCEDURE: CT ABDOMEN PELVIS WO/W CON INDICATIONS: Microscopic hematuria, history of bladder cancer TECHNIQUE: After the administration of oral contrast, 5 mm thick sections acquired from the diaphragms to the iliac crests. After the administration of intravenous contrast, 5 mm thick sections acquired from the diaphragms to the symphysis. 5 mm thick coronal and sagittal reformats were acquired. For radiation dose reduction, the following was used: automated exposure control, adjustment of mA and/or kV according to patient size. COMPARISON: None. FINDINGS: Image quality: Excellent. ABDOMEN: Lung bases: Lung bases are clear. Heart size is normal. Solid organs: Liver is normal in size and enhancement. Gallbladder is normal. Biliary system is non-dilated. Pancreas enhances normally. Spleen is normal in size and enhancement. No adrenal nodules. Both kidneys are normal in size. No hydronephrosis or nephrolithiasis. Bowel and peritoneum: Stomach, small and large bowel loops are normal in caliber and wall thickness. No free fluid or air. Nodes and vessels: No retroperitoneal or mesenteric adenopathy by size criteria. Aorta and inferior vena are normal in caliber. Miscellaneous: No ventral hernias. PELVIS: Genitourinary: Bladder wall thickness is normal. Miscellaneous: No inguinal hernias or adenopathy. Bones: No suspicious bony lesions. No vertebral body compression fractures. IMPRESSION: 1. No evidence of metastatic disease or adenopathy. 2. No acute or significant abnormality of the abdomen or pelvis. Dictated by: Ciaran Vides M.D. on 04/08/2023 at 18:46 Approved by: Ciaran Vides M.D. on 04/08/2023 at 18:51
== END ==
PROVIDERS: Family Provider Internal Medicine; PCP Physician Assistant; Referring Provider Urology; Visit Provider Urology
DX: R31.29 Other microscopic hematuria (principal); Z85.51 Personal history of malignant neoplasm of bladder
CPT/HCPCS: 74178; Q9967

== ENCOUNTER → 2023-05-02 09:25 | Outpatient (CLI) | payer MEDICARE, SELFPAY ==
[2023-05-02 11:02] LABS: Prostate Specific Antigen 0.892 ng/mL (0.10-4.00)
== END ==
PROVIDERS: Family Provider Internal Medicine; PCP Physician Assistant; Referring Provider Urology; Visit Provider Urology
DX: N32.0 Bladder-neck obstruction (principal); R31.29 Other microscopic hematuria; R33.9 Retention of urine, unspecified
CPT/HCPCS: 36415; 84153